=== PATIENT | female | born 1985 | race African-American/Black ===

== ENCOUNTER 2025-01-01 21:29 | Emergency (ER) | payer MEDICAID, SELFPAY ==
--- OUTSIDE RECORDS SUMMARY | 2024-12-08 11:30 | XMS_ITS | Encounter Summary ---
Author Organization [facility] Address [address] [place] [address] Care Team Providers Care Molder Apprentice Name Role Phone Candice Ayala MD Primary Care Provider [phone] Reason for Referral * Procedure/Equipment (Routine) - Incomplete Specialty Diagnoses / Procedures Referred By Contac t Referred To Contact Diagnoses S/P hysterectomy with oophorectomy Procedures DXA Bone Density Spine/[place] [address] [place] [address] Phone: tel: fax: Referral ID Status Reason Start Date Expiration Date V isits Requested Visits Authorized [id number] Incomplete 12/08/2024 03/09/2026 1 1 * Consult/Transfer Care (Routine) - New Request Specialty Diagnoses / Procedures Referred By Contac t Referred To Contact Diagnoses Unable to maintain weight Georgia Rodriges MD [address] [place] [address] Phone: tel: fax: Referral ID Status Reason Start Date Expiration Date V isits Requested Visits Authorized [id number] New Request 12/08/2024 03/09/2026 1 1 Scheduling Instructions Your clinician has recommended an evaluation by our [facility] team. You can quickly schedule your appointment by signing in to your online account at [email or web address] or through the text message you may have received. You can also call [phone] for help scheduling your appointment. Question Answer Appointment Urgency? Non-Urgent Reason for visit? Medication (non-surgical) Comments Pt requests consult, weight up and down by 30#, harder to lose weight. Let me (or pt) know if she cannot be seen in your clinic. Will refer to primary care if needed. * Consult/Transfer Care (Routine) - New Request Specialty Diagnoses / Procedures Referred By Emily camacho Referred To Contact Diagnoses Hair loss Georgia Rodriges MD [address] [email or web address] [address] Phone: tel: fax: Referral ID Status Reason Start Date Expiration Date V isits Requested Visits Authorized [id number] New Request 12/08/2024 03/09/2026 1 1 Scheduling Instructions Your clinician has recommended an appointment with Bernadine Saxena. You can quickly schedule your appointment by signing in to your online account at [email or web address] or through the text message you may have received. You can also make an appointment by calling [phone]. We also suggest you call your health insurance provider about your benefits and coverage for this appointment. Question Answer Appointment Urgency? Non-Urgent Reason for Visit All other Derm conditions Comments Hair loss, diffuse Reason for Visit * Reason Onset Date Comments Video Visit 12/08/2024 Encounter Details Date Type Department Care Team (Late st Contact Info) Description 12/08/2024 11:30 AM CDT [facility] [address] [place], [place] [address] Georgia Rodriges MD [email or web address] [place], [place] [id number] Surgical menopause on hormone replacement therapy (Primary Dx); Hair loss; Unable to maintain weight; Menopausal vasomotor syndrome; S/P hysterectomy with oophorectomy; Encounter for screening for osteoporosis Social History Tobacco Use Types Packs/Day Years Used Date Smoking Tobacco: Never Smokeless Tobacco: Never Alcohol Use Standard Drinks/Week Comments Yes 1 (1 standard drink = 0.6 oz pur e alcohol) social PHQ-2 Answer Date Recorded PHQ-2 Score 4 07/31/2024 Comments No Sex and Gender Information Value Date Recorded Sex Assigned at Not on file Legal Sex Female 5:55 AM CDT Gender Identity Not on file Sexual Orientation Not on file Occupation Industry Job Start Date Job End Date Not on file Not on file Not on file Not on file documented as of this encounter Patient Instructions * Patient Instructions* Georgia Rodriges MD - 12/08/2024 11:30 AM CDT Jordi Cristina-- It was nice to virtually meet you today! As promised, I'm getting back to you on a few things: Bone density testing--I think we should get your baseline, since your ovaries were removed at such a young age. I put the order in, and you can call to schedule at [phone]. 2. We talked about sending you to dermatology for evaluation for the hair loss. I did put that referral in. You can call to schedule an appointment there at [phone]. 3. Regarding her difficulty with weight management, you mentioned you 10 to go up and down by 30 lb. I did put in a referral to the weight management clinic through bariatric, however there is a ???disclaimer?? that says BMI needs to be above 35 to be a candidate to be seen there. I am not sure how true this is, so I will give you the number to call. If they do say you do not ???qualify?? to beseen there, I would then refer you to primary care for further management. The bariatric phone number for an appointment is [phone]. 4. I did send a 30 day refill of your estrogen to the [facility] in [place]. In looking for a transdermal equivalent, I do not find any patches that go up to that equivalent dose. I would like to review this with one of my partners, Dr. Dylan Ordoñez, who is our local menopausal hormone expert. Iwill ask her opinion and advice and get back to you on this. The other medication I mentioned for hot flashes (only) is called Veozah, in case you wish to google it. I am curious, if you have been off your estrogen for 1 month, did your hot flashes worsen without the estrogen? Or are the hot flashes present no matter whether you are on estrogen replacement or not? This is an important question, please call or write back with the answer. It will help us manage your symptoms! Enjoy your time in [place]! Call or write back if you have interval questions or concerns and let me know about whether your hot flashes change with or without estrogen.... Georgia Rodriges MD 6:21 PM 12/08/2024 documented in this encounter Progress Notes * Georgia Rodriges MD - 12/08/2024 11:30 AM CDTAddended by: GEORGIA RODRIGES on: 12/08/2024 07:47 PM Modules accepted: Level of Service * Georgia Rodriges MD - 12/08/2024 11:30 AM CDT Today's visit with Cristina Luque was conducted via telehealth (video) as it is the patient's preference and it is appropriate for the treatment being provided. She is a new patient to me. She is in her private car but pulled over for the visit. I am in my private office. Cristina had pelviscopy, then CRISTIANA, then open BSO in 2010 (age 25) d/t endometriosis. She has been taking estrace 3 mg po daily, without progesterone. Is s/p pelviscopy with cystectomies, then CRISTIANA for pain, then open BSO in 2010 describing normal ovaries with adhesions. Despite lackof progesterone, she has not had sx of endometriosis. Chart review lists hx including cardiac dysrhythmia, migraines. Has had cardiac ablation. Has struggled with possible POTS, has a port in. 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 Normal ovaries with adhesions, endo confirmed on pathology. No family hx of breast cancer. Problems discussed today: --vasomotor symptoms. She has been off her estrogen for a month because she ran out. She says she has had hot flashes since her surgery and that hormone supplementation has ???never helped?? . She recalls trying gabapentin in the past for restless legs and did not think that had any impact on her hot flashes. Hot flashes are only during the day, she finds that she does sleep well. Says her motherhad significant struggles with menopause and hot flashes as well. We discussed Veozah, as another option for trying to reduce hot flashes. She really does not want to introduce any additional oral medications at this time. In the meantime, I reviewed with her that transdermal delivery of estrogen is a bit less risky thanoral, due to liver metabolism and increased coagulation factors. She would be very much interested in a transdermal delivery. --Hair loss. Cristina says her hair has been diffusely thinning ever since her surgery. Says hairline is receiving perhaps a little bit, she does not have any patches of hair loss, but rather it is diffuse. She has long hair, but finds she can place hair binders around her ponytail 3 or 4 times, whereshe used to only be able to do it twice. I would recommend dermatology evaluation as additional workup. --Weight maintenance. Cristina states she can gain up to 30 lb in a short time, that it is very difficult to get the weight back off. She will need to follow strict keto diet to get weight off. Reviewedthat this becomes more difficult as we age. She wonders if there are other dietary recommendations.I have offered her consultation in the weight management clinic for guided approach. Last BMI listed was 25.7 back in July. If the weight management clinic we will not see her, we will then refer toprimary care. Last bone density: She has never had a bone density test Last mammogram 07/31/[address] abd/pelvis 06/11/17 negative. Pap 09/22/13 [facility], negative.--no longer needs pap as no hx severe dysplasia. Reviewed with her. Outpatient Medications Marked as Taking for the 12/08/24 encounter (Telemedicine) with Georgia Rodriges MD Medication Sig Dispense Refill estradiol (ESTRACE) 1 MG tablet Taking with 2 mg tablet for total 3 mg po daily 30 Tablet 1 estradiol 2 MG tablet Taking with 1 mg tablet for total 3 mg daily 30 Tablet 3 Midodrine 10 mg p.o. t.i.d., Valium 2 mg as needed for anxiety, Abilify, EpiPen available. Allergies for Rebel, Cristina Hanson Status Agent Date Noted Reaction Type Active ADHESIVE 01/25/2018 Hives Active BETA ADRENERGIC BLOCKERS 02/05/2018 Contraindication Active DOG EPITHELIUM 01/25/2018 Other, see comments Active HYDROCODONE-ACETAMINOPHEN 03/16/2017 Gastrointestinal OBJECTIVE: Well-developed well-nourished woman in no distress, driving a vehicle. Alert and oriented. Very pleasant. No additional exam is this is a scheduled video visit ASSESSMENT: History of endometriosis Status post hysterectomy with bilateral salpingo-oophorectomy in staged procedures as outlined above, BSO done 06/24/2010. She has been on estrogen replacement with 3 mg Estrace daily. Has not had progesterone as part of this regimen, does not need endometrial protection as she has had a hysterectomy however does have documented endometriosis at the times of surgery. Fortunately, asymptomatic. Ran out of her estrogen prescription a month ago. Is interested in transdermal route --Difficulty with weight maintenance. Says she goes up and down by 30 lb, and it is very difficult to lose weight. She is interested in seeing weight management and bariatric for help with this. --Diffuse hair loss, says hair is is a lot thinner since her hysterectomy. Estrogen is replaced. Dermatology referral. --Menopausal symptoms: Says she has had hot flashes since surgery and that hormone replacement as never helped. Tried gabapentin in the past, does not think it helps. Does sleep well. PLAN: Recommended bone density to be sure we have her baseline, and can follow as needed Reviewed transdermal estrogen replacement provides less of a risk of venous thromboembolic events compared to oral. Risks are already low, but can be made lower by transdermal delivery. She is interested in exploring this. I do not see any patches at the equivalent dose however, so I will review this with a [facility]- certified partner to get her recommendations. In the meantime, she has been off her estrogen for a month and remain symptomatic. I have sent refills for 1 month supply to [place], where she will be vacationing. Referral to Dermatology for additional workup or management of hair loss. Georgia Rodriges MD 6:36 PM 12/08/2024 Total time 55 minutes including 25 minutes on video visit, additional time chart review, documentation, and coordination of care Heart Health: As recommended by the [place] [employer], we use information about your health to estimate your risk for a heart attack or stroke. Your risk in the next 10 years is 0.2%. The information we used to estimate your risk is: Your age 39, sex, blood pressure of 120/71 mm Hg, no use of blood pressure lowering medication, total cholesterol of 168 mg/dl, HDL (good cholesterol) of 72mg/dl, no diagnosis of diabetes, no tobacco or nicotine use. You can improve your heart health by doing the following in order of priority: For information on self-directed lifestyle change for weight management, go to [email or web address] PriorityWizard documented in this encounter Plan of Treatment Upcoming Encounters Date Type Department Care Team (Late st Contact Info) Description 01/05/2025 9:00 AM CDT Appointment [facility] [id number] [facility] [address] [place] [address] Yany Faye MD [address] [facility] [address] [place] [phone] 01/05/2025 10:00 AM CDT Appointment [facility] [address] [address] [address] [place] [address] Yany Faye MD [address] [facility] [address] [place] [phone] 01/05/2025 11:00 AM CDT Appointment [facility] [address] [address] [address] [place] [phone] Yany Faye MD [address] [facility] [address] [place] [phone] 03/03/2025 8:00 AM BIO MEDICAL TECHNICIAN Appointment [facility] [address] [place] [address] 03/05/2025 11:20 AM BIO MEDICAL TECHNICIAN Tele[facility] [address] [place] [address] Lexy Park MD [id number] [place] [address] Scheduled Orders Name Type Priority Associated Diagnoses Orde r Schedule DXA Bone Density Spine/Hip/Forearm Imaging New Routine S/P hysterectomy with oophorectomy Expected: 12/08/2024, Expires: 01/07/2027 Scheduled Referrals Name Type Priority Associated Diagnoses Orde r Schedule Dermatology Consult-Adult/Peds Referral Routine Hair loss Ordered: 12/08/2024 Weight Management and Bariatric Surgery Consult Referral Routine Unable to maintain weight Ordered: 12/08/2024 documented as of this encounter Visit Diagnoses Diagnosis Surgical menopause on hormone replacement therapy- Primary Hair loss Alopecia, unspecified Unable to maintain weight Other symptoms concerning nutrition, metabolism, and development Menopausal vasomotor syndrome S/P hysterectomy with oophorectomy Acquired absence of both cervix and uterus Encounter for screening for osteoporosis Special screening for osteoporosis documented in this encounter Care Teams Molder Apprentice Relationship Specialty [place] [address] [address] [place] [address] PCP - General Family Practice 09/07/16 documented as of this encounter
--- OUTSIDE RECORDS SUMMARY | 2024-12-16 13:30 | XMS_ITS | Encounter Summary ---
Author Organization [employer] [facility] Address [address] [place] [address] Care Team Providers Care Marine Consultant Name Role Phone Candice Ayala MD Primary Care Provider [phone] Reason for Referral * Procedure/Equipment (Routine) - Incomplete Specialty Diagnoses / Procedures Referred By Contac t Referred To Contact Diagnoses Trigeminal autonomic cephalgias Hyperreflexia Paresthesias Procedures MR Thoracic Spine W/WO IV Cont Yany Faye MD [address] [place] [phone] Phone: tel: fax: Referral ID Status Reason Start Date Expiration Date V isits Requested Visits Authorized [id number] Incomplete 12/16/2024 03/17/2026 1 1 * Procedure/Equipment (Routine) - Incomplete Specialty Diagnoses / Procedures Referred By Contac t Referred To Contact Diagnoses Trigeminal autonomic cephalgias Hyperreflexia Paresthesias Procedures MR Cervical Spine W/WO IV Cont Yany Faye MD [address] [address] Phone: tel: fax: Referral ID Status Reason Start Date Expiration Date V isits Requested Visits Authorized [id number] Incomplete 12/16/2024 03/17/2026 1 1 * Procedure/Equipment (Routine) - Incomplete Specialty Diagnoses / Procedures Referred By Emily t Referred To Contact Diagnoses Trigeminal autonomic cephalgias Hyperreflexia Paresthesias Procedures MR Brain W/WO IV Cont Yany Faye MD [address] [address] Phone: tel: fax: Referral ID Status Reason Start Date Expiration Date V isits Requested Visits Authorized [id number] Incomplete 12/16/2024 03/17/2026 1 1 Reason for Visit * Reason Comments CONSULT Encounter Details Date Type Department Care Team (Late st Contact Info) Description 12/16/2024 1:30 PM CDT Office Visit Specialty Center [address] [place] [phone] Yany Faye MD [facility] [address] [address] Trigeminal autonomic cephalgias (Primary Dx); Hyperreflexia; Paresthesias; Postsurgical menopause Social History Tobacco Use Types Packs/Day Years [...] on file documented as of this encounter Last Filed Vital Signs Vital Sign Reading Time Taken Comments Blood Pressure 101/69 12/16/2024 1:32 PM CDT Pulse 69 12/16/2024 1:32 PM CDT Temperature - - Respiratory Rate 14 12/16/2024 1:32 PM CDT Oxygen Saturation - - Inhaled Oxygen Concentration - - Weight 72.1 kg (159 lb) 12/16/2024 1:32 PM CDT Height - - Body Mass Index 26.46 07/31/2024 9:27 AM CDT documented in this encounter Patient Instructions * Patient Instructions* Yany Faye MD - 12/16/2024 1:30 PM CDT Call radiology [phone] and schedule MRI brain and spine studies. For flare up indomethacin 50 mg 1 capsule 3 times a day with food and 1 OTC Prilosec a day during flare up. documented in this encounter Progress Notes * Yany Faye MD - 12/16/2024 1:30 PM CDT REASON FOR VISIT: Headaches. REFERRING PROVIDER: Lexy Park MD HISTORY OF PRESENT ILLNESS: Robert is very pleasant 39-year-old female who comes in for evaluation of chronic headaches. Genie received prior neurological [facility] [facility] and most[facility]ly [facility], was seen here by Dr. Park for spells diagnosed as nonepileptic. As far as headaches describes symptoms that have been going on for about 20 years. The pain starts in the occipital area usually right side but may also have episodes on the left, like lightening bolts going through head to ear, frontal area including eye, attack of pain for seconds to minutes followed by residual sensation of numbness in the affected area, has associated ipsilateral sinus congestion, lacrimation, sensitivity to touch, head movement such as rotation, flexion, but also touch, and environmental triggers such as light and noise will trigger superimposed attacks. Symptoms can last for several hours and flare-up can last 7-9 days, with 1-4 weeks in between flare-ups. She has tried several treatments as summarized further. No recent imaging completed. In addition to headacheshas diagnosis of POTS, mast cell activation syndrome, Tourette's syndrome, narcolepsy. Has port forIV fluids, administers herself weekly. She used to see specialist for mast cell activation syndrome, used to take cromolyn and use Benadryl IV. She gets tingling in her upper extremities, episodic spells that are described as body feels heavy causing her to sit down, remains aware and alert, although speech is altered, episode can last for couple hours. Since childhood until age 6 was doing ballet then age 9 through 17 gymnastics and age 20 to 29 dancing. She had hysterectomy age 23 for severe endometriosis. PRIOR TREATMENTS: Amitriptyline; topiramate; gabapentin; Depakote; carbamazepine; propranolol; Emgality; rizatriptan;Ubrelvy; NSAIDs; narcotics; muscle relaxants. INVESTIGATIONS: MRI brain w/wo 03/20/2012 at [facility]: Normal MR appearance of the imaged extent f the fifth cranial nerves. Normal MR appearance of the remainder of the brain without evidence of intracranial mass, hemorrhage or acute or subacute infarction. Mild right ethmoid air cell mucosal thickening. CTA 11/19/2017: Negative. REVIEW OF SYSTEMS: Pertinent positives are summarized above in the history of present illness. Remainder of complete review of systems is negative. PAST MEDICAL HISTORY: Headaches as detailed above. POTS. Mast cell activation syndrome. Tourette's syndrome. Narcolepsy. Joint pain. Anxiety, depression and panic disorder. Insomnia. SVT status post ablation. Back injury in sport. Total hysterectomy age 23 for severe endometriosis. Knee surgery. MEDICATIONS: Abilify 2 mg a day, diazepam 2 mg prn, estradiol 0.15 mg/24hr weekly patch, lactate ringers infusion every 3 weeks. Allergies as of 12/16/2024 - Reviewed 11/05/2024 Allergen Reaction Noted Adhesive Hives 01/25/2018 Beta adrenergic blockers 02/05/2018 Dog epithelium Other, see comments 01/25/2018 Hydrocodone-acetaminophen Gastrointestinal 03/16/2017 FAMILY HISTORY: Unremarkable. SOCIAL HISTORY: Single, no children. 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 Denies tobacco, alcohol use. BP 101/69 (BP Location: Left Arm, BP Cuff Size: Regular) Pulse 69 Resp 14 Wt 159 lb (72.1 kg) BMI 26.46 kg/m?? GENERAL: Alert, in no acute distress. Appears well for stated age. Maintains good eye contact. NEUROLOGICAL EXAM: Alert and oriented x3. Speech and conversational language are normal. Recent andremote memory intact. Normal attention span and concentration. Fund of knowledge is appropriate. Cranial nerve exam 2 through 12 is normal. Motor exam reveals normal muscle tone and muscle strength in major muscle groups. Deep tendon reflexes are symmetric, increased throughout, positive Trae, plantar responses withdrawal. No dysmetria, no tremor. Sensory exam is normal to touch and vibration. Gait is normal including toe, heel, and tandem. Romberg is negative. ASSESSMENT: Autonomic cephalalgia. Hyperreflexia. Paresthesias. Spells. Mast cell activation syndrome POTS. PLAN: Given constellation of symptoms, cephalalgia with autonomic symptoms but also history of POTS, spells, mast cell activation syndrome, pre-existing history of repetitive motion injuries related to gymnastics and dance prior to symptoms onset, abnormal exam hyperreflexia, I wonder about proximal cervical spine instability. Will get MRI brain, cervical through thoracic spine with and without contrast. Of interest would be cervical spine with flexion-extension but this cannot be done at our imagingcenter but will start with routine studies first. For symptomatic management indomethacin 50 mg 3 times a day with food and Prilosec on the day of symptoms flare-up. Follow-up in 2 to 3 months or sooner based on the outcome of the above. Total time 60 minutes, spent reviewing chart, films, test results, interviewing patient, examination, and care coordination. Greater than 50% in direct face to face counseling and coordination of care. documented in this encounter Plan of Treatment Upcoming Encounters Date Type Department Care Team (Late st Contact Info) Description 01/05/2025 9:00 AM CDT Appointment [facility] [place] [address] [place] [address] [place] [address] Yany Faye MD 0782 [facility] [address] [place] [phone] 01/05/2025 10:00 AM CDT Appointment [facility] [place] [address] [place] [address] [place] [phone] Yany Faye MD 3931 [facility] [address] [place] [phone] 01/05/2025 11:00 AM CDT Appointment [facility] [place] [address] [place] [place] [address] [place] [phone] Yany Faye MD [address] [phone] 03/03/2025 8:00 AM COMMERCIAL LOAN REVIEWER Appointment [facility] [address] [place], [place] [address] 03/05/2025 11:20 AM COMMERCIAL LOAN REVIEWER [facility] 3931 Neurology 3931 [place] [address] Lexy Park MD [address] [address] Scheduled Orders Name Type Priority Associated Diagnoses Orde r Schedule MR Brain W/WO IV Cont Imaging New Routine Trigeminal autonomic cephalgias Hyperreflexia Paresthesias Expected: 12/16/2024 (Approximate), Expires: 12/16/2025 MR Cervical Spine W/WO IV Cont Imaging New Routine Trigeminal autonomic cephalgias Hyperreflexia Paresthesias Expected: 12/16/2024 (Approximate), Expires: 12/16/2025 MR Thoracic Spine W/WO IV Cont Imaging New Routine Trigeminal autonomic cephalgias Hyperreflexia Paresthesias Expected: 12/16/2024 (Approximate), Expires: 12/16/2025 documented as of this encounter Visit Diagnoses Diagnosis Trigeminal autonomic cephalgias- Primary Other trigeminal autonomic cephalgias Hyperreflexia Abnormal reflex Paresthesias Disturbance of skin sensation Postsurgical menopause Symptomatic states associated with artificial menopause documented in this encounter Care Teams Marine Consultant Relationship Specialty [place] [address] [place] [address] PCP - General Family Practice 09/07/16 documented as of this encounter
--- OUTSIDE RECORDS SUMMARY | 2025-01-01 21:31 | XMS_ITS | Encounter Summary ---
Author Organization [employer] Address [address] [place] [address] Care Team Providers Care Grocery Store Clerk Name Role Phone Maida Ayala MD Primary Care Provider [phone] Reason for Visit * Reason Onset Date Comments Refill 11/17/2024 aluminum chlorid e (DRYSOL) 20 % external solution Encounter Details Date Type Department Care Team (Late st Contact Info) Description 11/17/2024 Refill [facility] Medicine [address] [place] [address] [place] [address] [place], [place] [address] [place] [id number] Refill (aluminum chloride (DRYSOL) 20 % external solution) Social History Tobacco Use Types Packs/Day Years [...] on file documented as of this encounter Nursing Notes * Webservice, [facility] - 11/17/2024 10:28 AM CDT aluminum chloride (DRYSOL) 20 % external solution Medication started: 07/31/2024 Last ordered by MAIDA AYALA: 11/08/2024 (9 days ago) QTY: 35, Refills: 10, Sig: apply topically every evening. apply sparingly to skin with excessive sweating for 1-5 nights to get appropriate response (unchanged) -> A duplicate request was processed on 11/17/2024. -> Medication cannot be delegated. Last qualifying visit: 07/31/2024 (with MAIDA AYALA) Next scheduled visit: None [facility] Embedded Refills, Reference: [id number], 11/17/2024 10:28:27 AM MEDARDOTKatheryn Refill Centralized Services - Primary Care [[id number]] ([id number]) * Jocelyne Jimenez - 11/17/2024 10:20 AM CDT Received fax from pharmacy stating theres a back order with no eta on when they will have the medication. And if we can send it to another pharmacy. documented in this encounter Plan of Treatment Upcoming Encounters Date Type Department Care Team (Late st Contact Info) Description 01/05/2025 9:00 AM CDT Appointment [facility] [place] [address] [place] [address] [place] [address] Yany Faye MD [address] [phone] 01/05/2025 10:00 AM CDT Appointment [facility] [place] [address] [place] [address] [place] [address] Yany Faye MD [address] [phone] 01/05/2025 11:00 AM CDT Appointment [facility] [place] [address] [address] [address] [place] [address] Yany Faye MD [address] [phone] 03/03/2025 8:00 AM NURSING DEPARTMENT CHAIRPERSON Appointment [facility] [address] [place] [address] 03/05/2025 11:20 AM NURSING DEPARTMENT CHAIRPERSON [facility] 3931 Neurology [facility] [place] [address] Lexy Park MD [address] [address] documented as of this encounter Visit Diagnoses Diagnosis Excessive sweating Generalized hyperhidrosis documented in this encounter Care Teams Grocery Store Clerk Relationship Specialty [place] [address] [place] [address] PCP - General Family Practice 09/07/16 documented as of this encounter
--- OUTSIDE RECORDS SUMMARY | 2025-01-01 21:31 | XMS_ITS | Encounter Summary ---
Author Organization [employer] Address [address] [place] [address] Care Team Providers Care Burr Picker Name Role Phone Candice Ayala MD Primary Care Provider [phone] Reason for Visit * Reason Comments Medication Problems Encounter Details Date Type Department Care Team (Late st Contact Info) Description 11/17/2024 Telephone [facility] 3800 Psychiatry 3800 [facility] [place] [address] Amy Levy APRN, PSYCH NURSE [address] [place], [place] [id number] Medication Problems Social History Tobacco Use Types Packs/Day Years [...] as of this encounter Nursing Notes * Everett Rivas RN - 11/19/2024 3:27 PM CDT RN spoke with pt. Informed her that CarmineRoseanne GRACIE Levy CNP prescribed Abilify 2 mg (4 mg daily) and Valium 2 mg at HS PRN; she can fern picker Abilify today but she needs to wait until 11/21/24 to fern picker Valium. She verbalized understanding. Closing encounter. * Amy Levy APRN, CNP - 11/19/2024 12:29 PM CDT Thank you for the message. I signed and sent the prescription. Thank you. * Everett Rivas RN - 11/18/2024 3:15 PM CDT Routing to Rickie Levy APRN, CNP - Valium 2 mg is signed for 15 days (15 tabs) instead of 10 days. RNd/c 15 day script and pended 10 day script to review/approve. * Everett Rivas RN - 11/18/2024 3:12 PM CDT Noted. RN discontinued Xanax 0.5 mg & Abilify 2 mg daily. * Amy Levy APRN, CNP - 11/18/2024 2:53 PM CDT Thank you for re-setting the date. Yes please DC Xanax on 11/08/2024 and Abilify 2 mg day. Scripts sent. * Everett Rivas RN - 11/18/2024 12:19 PM CDT Routing to Rickie Levy APRN, CNP - If okay, pended Valium 2 mg x 10 days (2 mg HS PRN) & Abilify 2 mg (4 mg daily) to review/approve. Date adjusted to 11/21/24 for Valium 2 mg d/t pt picked up Xanax 0.5 mg on 11/08/24. Do we need to d/c Xanax 0.5 mg as Valium starts? *11/05/24 visit note not signed. RN to discontinue script for Abilify 2 mg daily after Rickie Levy approves Abilify 4 mg daily (take 2 tabs of 2 mg). * Amy Levy APRN, CNP - 11/18/2024 12:00 PM CDT Thank you for the clarification. She can start Valium 2 mg at bedtime prn x 10 days. Do not take cannabis with Valium due to the risk of sedation. Increase Abilify to 4 mg po daily. * Everett Rivas RN - 11/18/2024 11:41 AM CDT Routing to Rickie Levy APRN, CNP - Pt is not reporting on SE for Abilify 2 mg. Also pt is requesting Valium instead of Xanax. Please see RN's 11/17/24 note below and advise. * Amy Levy APRN, CNP - 11/18/2024 11:16 AM CDT Thank you for the message. Cristina can increase the Abilify dose to 4 mg daily, if she is not having side effects. Thank you. * Everett Rivas RN - 11/17/2024 11:13 AM CDT Ramiro to Rickie Levy APRN, CNP - RN spoke with pt. She states Abilify 2 mg is too low as she does not feel anything different and people around her has noticed difference. She requests dose increase for Abilify. She also requests Valium because Xanax 0.5 mg has not been effective. She reports she had Valium during her hospitalization in the past and it worked well. She has just started both medications in mid October. Please advise (11/05/24 visit note not signed). RN informed pt that Valium is also controlled drug and it is easy to get addicted. She verbalized understanding. * Everett Rivas RN - 11/17/2024 11:02 AM CDT RN left VM for pt to call back. Need to clarify if pt is reporting both Xanax and Abilify are not working or one or the other. 11/05/24 visit not NOT signed. * Bola Biswas - 11/17/2024 10:19 AM CDT Medication Change/Question/Concern What is your question or concern? Pt calling in stating that she was told to call back if these medications were not working for her, and they are not. Would like to move on the next steps. Name of medication(s): ALPRAZolam (XANAX) 0.5 MG tablet ARIPiprazole (ABILIFY) 2 MG tablet Is it okay to leave a detailed message on your voicemail? Yes We'd like to make sure we have an updated pharmacy on file. Yes; [id number] [place] [address] [address] [phone] Is there anything else I can help you with today? no documented in this encounter Plan of Treatment Upcoming Encounters Date Type Department Care Team (Late st Contact Info) Description 01/05/2025 9:00 AM CDT Appointment [facility] [place] [address] [place] [address] [place] [phone] [place] [address] [place] [phone] 01/05/2025 10:00 AM CDT Appointment [facility] [place] [address] [place] [address] [place] [phone] Yany Faye MD [address] [phone] 01/05/2025 11:00 AM CDT Appointment [facility] [place] [address] [place] [address] [place] [phone] Yany Faye MD [facility] [address] [phone] 03/03/2025 8:00 AM HVAC PROJECT ENGINEER Appointment [facility] [address] [place] [address] 03/05/2025 11:20 AM HVAC PROJECT ENGINEER [facility] 393 Neurology 3931 [place] [address] Lexy Park MD [address] [phone] documented as of this encounter Visit Diagnoses Not on filedocumented in this encounter Care Teams Burr Picker Relationship Specialty [place] [address] [place] [address] PCP - General Family Practice 09/07/16 documented as of this encounter
--- OUTSIDE RECORDS SUMMARY | 2025-01-01 21:31 | XMS_ITS | Encounter Summary ---
Author Organization [employer] Address [address] [place] [address] Care Team Providers Care Gasoline Plant Operator Name Role Phone Candice Ayala MD Primary Care Provider [phone] Salomon Sousa MD Unavailable [phone] Abhilash Christian MD Unavailable [phone] Marina Braga RN Unavailable Unavailable BendSalomon bernal MD Unavailable [phone] Amy Padron ELECTRICIAN ELEVATOR MAINTENANCE SALESPERSON [employer] Unavailable + Alana Rodriguez ELECTRICIAN ELEVATOR MAINTENANCE SALESPERSON [employer] Unavailable [phone] Salomon Sousa MD Unavailable [phone] Encounter Details Date Type Department Care Team (Late st Contact Info) Description 04/09/2023 [facility] Medical Advice [facility] [address] [address] Salomon Sousa MD [address] [place] [address] Social History Tobacco Use Types Packs/Day Years Used Date Smoking Tobacco: Never Smokeless Tobacco: Never Alcohol Use Standard Drinks/Week Comments Yes 3.3 (1 standard drink = 0.6 oz p ure alcohol) occas PHQ-2 Answer Date Recorded PHQ-2 Score 0 06/15/2022 Adolescent Education Answer Date Record ed Getting School Help Needed Not on file 01/28 Comments No Sex and Gender Information Value Date Recorded Sex Assigned at Not on file Legal Sex Female 4:13 AM DRYING TUMBLER OPERATOR Gender Identity Not on file Sexual Orientation Not on file 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 Not on file documented as of this encounter Plan of Treatment Upcoming Encounters Date Type Department Care Team (Late st Contact Info) Description 05/28/2025 12:00 PM DRYING TUMBLER OPERATOR Virtual Visit [facility] [address] [phone] Salomon Sousa MD [address] [place] [phone] documented as of this encounter Visit Diagnoses Not on filedocumented in this encounter Care Teams Gasoline Plant Operator Relationship Specialty Start Date End Date Candice Ayala MD PCP - General Family Practice 08/30/17 Salomon Sousa MD Clinical Cardiac Electrophysiology 10/16/18 Abhilash Christian MD [address] [phone] Cardiology 10/16/18 Marina Braga, RN Specialty Special Services Agent Clinical Cardiac Electrophysiology 03/10/19 Salomon Sousa MD Assigned Heart and Vascular Provider 02/13/20 Amy Padron APRN SALESPERSON [employer] [address] [place], [place] [phone] Nurse Practitioner Cardiovascular Disease 04/09/23 Alana Rodriguez APRN SALESPERSON [employer] [address] [place] [address] Assigned Surgical Provider 05/05/23 11/11/24 Salomon Sousa MD 9 [place], [place] [address] Home Infusion Following Provider Cardiovascular Disease 02/11/24 documented as of this encounter
--- OUTSIDE RECORDS SUMMARY | 2025-01-01 21:31 | XMS_ITS | Encounter Summary ---
Author Organization [employer] Address [address] [place] [address] Care Team Providers Care Tank Calibrator Name Role Phone Candice Ayala MD Primary Care Provider [phone] Salomon Sousa MD Unavailable [phone] Abhilash Christian MD Unavailable Marina Braga RN Unavailable Unavailable BendSalomon bernal MD Unavailable [phone] Amy Padron AERIAL GUNNER SUPERINTENDENT INSOLE TAPER Unavailable + Alana Rodriguez AERIAL GUNNER SUPERINTENDENT INSOLE TAPER Unavailable [phone] Salomon Sousa MD Unavailable [phone] Encounter Details Date Type Department Care Team (Late st Contact Info) Description 09/21/2022 [facility] Medical Advice [facility] [address] [address] Salomon Sousa MD [address] [place] [address] Autonomic dysfunction (Primary Dx) Social History Tobacco Use Types Packs/Day Years Used Date Smoking Tobacco: Never Smokeless Tobacco: Never Alcohol Use Standard Drinks/Week Comments Yes 3.3 (1 standard drink = 0.6 oz p ure alcohol) occas PHQ-2 Answer Date Recorded PHQ-2 Score 0 06/15/2022 Comments No Sex and Gender Information Value Date Recorded Sex Assigned at Not on file Legal Sex Female 4:13 AM DIGITAL MARKETING PROGRAM MANAGER Gender Identity Not on file Sexual Orientation Not on file 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 Not on file documented as of this encounter Plan of Treatment Upcoming Encounters Date Type Department Care Team (Late st Contact Info) Description 05/28/2025 12:00 PM DIGITAL MARKETING PROGRAM MANAGER Virtual Visit [facility] [address] [phone] Salomon Sousa MD [address] [place] [phone] documented as of this encounter Visit Diagnoses Diagnosis Autonomic dysfunction- Primary Unspecified disorder of autonomic nervous system documented in this encounter Care Teams Tank Calibrator Relationship Specialty Start Date End Date Candice Ayala MD PCP - General Family Practice 08/30/17 Salomon Sousa MD Clinical Cardiac Electrophysiology 10/16/18 [place] [address] [place] [phone] Cardiology 10/16/18 Marina Braga, RN Specialty Color Specialist Clinical Cardiac Electrophysiology 03/10/19 Salomon Sousa MD Assigned Heart and Vascular Provider 02/13/20 Amy Padron APRN INSOLE TAPER [address] [place] [phone] Nurse Practitioner Cardiovascular Disease 04/09/23 Alana Rodriguez APRN INSOLE TAPER [address] [place] [phone] Assigned Surgical Provider 05/05/23 11/11/24 Salomon Sousa MD [address] [place] [address] Home Infusion Following Provider Cardiovascular Disease 02/11/24 documented as of this encounter
--- OUTSIDE RECORDS SUMMARY | 2025-01-01 21:32 | XMS_ITS | Clinical Summary ---
Author Organization [facility] Address [address] [place] [address] Care Team Providers Care Science Faculty Member Name Role Phone Katarzyna Gutierrez Unavailable Allergies No known active allergies Medications estradiol (ESTRACE) 1 mg tablet Take 1 tablet by mouth once daily. 0 09/22/2013 Active estradiol (ESTRACE) 2 mg tabletIndication s:Surgical menopause Take 1 tablet by mouth once daily. APPT NEEDED 90 tablet 0 12/01/2014 Active Active Problems Problem Noted Date Diagnosed Date Endometriosis, site unspecified 06/24/2010 Endometriosis of ovary 07/26/2009 Lichen sclerosus et atrophicus 05/14/2009 Overview (05/14/2009): On abdomen. Noted on biopsy 05/06/09. Followed by derm. Mood disorder 04/26/2009 Overview (04/26/2009): Followed by [facility] psychiatry; they are also concerned for possible personality disorder, ocd. History of 3 psychiatric hospitalizations at [facility]. Hepatitis C, chronic 04/14/2009 Overview (04/26/2009): [place] [facility] records reviewed. Last visit there 03/18/08. Hepatitis C genotype 1a, last viral load 61,080 Normal abdominal ultrasound 12/29. Liver biopsy was performed by Dr. David Lobato and per [place] [facility] records showed grade 1-2 inflammation and stage 0 of 4 fibrosis. Anemia and psychiatric issues at present were felt to outweigh benefits of treatment of HCV. They wanted to see her again in follow up annually. Anemia, unspecified 04/14/2009 Overview (06/28/2009): Normal hgb electrophoresis, peripheral smear most consistent with resolving iron deficiency anemia and possible anemia of chronic disease from hep C. Encounters Date Type Department Care Team Description 12/29/2024 Patient Outreach [facility] [address] [place] [address] Matt August Simone [facility] ([place] inactive outreach) 10/20/2024 Patient Outreach [facility] [address] [place] [address] Matt August Simone [facility] (Administrative Activity ) 10/10/2024 Patient Outreach [facility] [address] [place] [address] Matt August Simone [facility] (Annual HRA Scheduling Outreach) from Last 3 Months Family History Medical History Relation Name Comments Other Father Hepatitis C Other Mother Hepatitis C Relation Name Status Comments Father Mother Social History Tobacco Use Types Packs/Day Years Used Date Smoking Tobacco: Never Smokeless Tobacco: Never Alcohol Use Standard Drinks/Week Comments Yes 0 (1 standard drink = 0.6 oz pur e alcohol) binge alcoholic Comments No Sex and Gender Information Value Date Recorded Sex Assigned at Not on file Legal Sex Female 6:17 AM FORESTRY FOREMAN Gender Identity Not on file Sexual Orientation Not on file Occupation Industry Job Start Date Job End Date Student Not on file Not on file Not on file Obstetrics History Para Term AB IAB SAB Ectopic Multiple Livin g Live Births 0 0 0 0 0 0 0 0 0 0 Last Filed Vital Signs Vital Sign Reading Time Taken Comments Blood Pressure 120/63 08/31/2016 5:28 PM CDT Pulse 70 08/31/2016 5:28 PM CDT Temperature 36.9 C (98.4 F) 08/31/2016 2:10 PM CDT Respiratory Rate 16 08/31/2016 2:10 PM CDT Oxygen Saturation 98% 08/31/2016 2:10 PM CDT Inhaled Oxygen Concentration - - Weight 58.3 kg (128 lb 8 oz) 08/31/2016 2:10 PM CDT Height 167.6 cm (5' 6) 08/31/2016 2:10 PM CDT Body Mass Index 20.74 08/31/2016 2:10 PM CDT Plan of Treatment Health Maintenance Due Date Last Done Comments Depression screening for age 12+ 1996 HIV for age 15-65 1999 Hepatitis C screening for age 18-79 2002 Hepatitis B series for 19+ (1 of 3 - 19+ 3-dose series) 2003 HPV series for age 9-45 (1 - 3-dose SCDM series) 2011 Tetanus booster 04/23/2015 04/23/2005 (Comp leted outside of [facility]) Pap test for age 21-65 09/22/2016 4, 03/31/2009 (Completed outside of [facility]) BMI (ht and wt on same day) for age 18+ 08/31/2017 08/31/2016 COVID-19 vaccine series (2023- season) 2024 Influenza Vaccine (#1) 2024 RSV vaccine for adults or (1 - 1-dose 75+ series) 2059 Pneumococcal series for age 6-49 Aged Out No longer eligible based on patient's age to complete this topic Procedures Procedure Name Priority Date/Time Associated Diagnosis Comments EXTRACTOR PULLER THIN PREP PAP SCREEN IMAGED Routine 09/22/2013 4:57 PM CDT Screening for malignant neoplasm of the cervix from Last 3 Months or Most Recently Relevant to Health Maintenance Results * EXTRACTOR PULLER THIN PREP PAP SCREEN IMAGED (09/22/2013 4:57 PM CDT) CYTOLOGY CYTOPATHOLOGY REPORT [facility] Status: Final Status [id number] CLINICAL INFORMATION Last Date of LMP :Hysterectomy Last Pap Date :Unknown Last Pap Result :First Pap/Unknown ABN [place]/Bx Past 5 YRS :None Hormone Usage :None Menstrual Status :Hyst-cervix absent [place]/Bx done today :No Additional Information :None given HPV Request :HPV if ASCUS SPECIMEN SOURCE :Cervical/vaginal ThinPrep Vial, screening SPECIMEN ADEQUACY :Satisfactory for evaluation INTERPRETATION/RES ULT Negative for intraepithelial lesion or malignancy (NIL) Organisms Shift in adarsh suggestive of bacterial vaginosis Cytology 1st Screener :richie Signed by :richie This specimen was screened by the FDA approved ThinPrep Imaging System and manually reviewed. NOTE: The Pap test is a screening technique, not a diagnostic procedure. It is used primarily to screen for squamous cancers and precursor lesions. Published studies have shown that it is subject to both false negative and false positive results. The pap test should not be used as the sole means to diagnose or exclude pre-malignant and malignant lesions. COLLECTED:09/22/13 ACCESSIONED: 09/23/13 SIGNED: 09/26/13 [facility] PAP [place] CODE NIL [facility] Tissue specimen (specimen) (Cervical/Vagina l) 09/22/2013 4:57 PM CDT 09/22/2013 4:54 PM CDT us Lori Colorado NP PATHOLOGY/CYTOLOGY Final Result [facility] INTERNAL ZIP [id number] [place] [phone] from Last 3 Months or Most Recently Relevant to Health Maintenance Insurance LOCATED WITHIN [facility] Advance Directives * Full Code (Latest Code Status on File) Date Activated Date Inactivated Comments 06/24/2010 5:12 AM 06/27/2010 6:08 PM * Full Code Date Activated Date Inactivated Comments 07/26/2009 9:46 AM 07/29/2009 2:43 PM * Full Code Date Activated Date Inactivated Comments 07/26/2009 5:57 AM 07/26/2009 9:46 AM * Full Code Date Activated Date Inactivated Comments 06/28/2009 7:17 AM 06/28/2009 4:16 PM * Full Code Date Activated Date Inactivated Comments 03/11/2008 6:32 AM 03/11/2008 1:29 PM Care Teams Science Faculty Member Relationship Specialty Start Date End Date Matt August Simone [address] [place] [address] [facility] Care Guide 12/18/22
--- OUTSIDE RECORDS SUMMARY | 2025-01-01 21:32 | XMS_ITS ---
Author Organization [facility] Address [address] [place] [address] Care Team Providers Care Director Of Safety And Security Name Role Phone Candice Ayala MD Primary Care Provider [phone] Salomon Sousa MD Unavailable [phone] Abhilash Christian MD Unavailable [phone] Marina Braga RN Unavailable Unavailable Salomon Sousa MD Unavailable [phone] Amy Padron APRN REJECT OPENER AND FILLER Unavailable + Salomon Sousa MD Unavailable [phone] Catheter Care Status:Enrolled (Active) Start date:12/27/2023 Enrollment date:12/27/2023 Related program episode:Home Infusion (Active) Continued Care and Services Coordination
--- OUTSIDE RECORDS SUMMARY | 2025-01-01 21:32 | XMS_ITS | Encounter Summary ---
Author Organization [facility] Address [address] [place] [address] Care Team Providers Care Grade Setter Name Role Phone Candice Ayala MD Primary Care Provider + [phone] Salomon Sousa MD Unavailable [phone] Abhilash Christian MD Unavailable [phone] Marina Braga RN Unavailable Unavailable Salomon Sousa MD Unavailable [phone] Amy Padron SUBSYSTEMS ENGINEER AGRICULTURAL ENGINEERING TECHNICIANS Unavailable + Alana Rodriguez SUBSYSTEMS ENGINEER AGRICULTURAL ENGINEERING TECHNICIANS Unavailable [phone] Salomon Sousa MD Unavailable [phone] Encounter Details Date Type Department Care Team (Late st Contact Info) Description 09/29/2021 [facility] [address] [address] [facility] Social History Tobacco Use Types Packs/Day Years Used Date Smoking Tobacco: Never Smokeless Tobacco: Never Alcohol Use Standard Drinks/Week Comments Yes 3.3 (1 standard drink = 0.6 oz p ure alcohol) occas Comments No Sex and Gender Information Value Date Recorded Sex Assigned at Not on file Legal Sex Female 4:13 AM LUNCHROOM SUPERVISOR Gender Identity Not on file Sexual Orientation Not on file 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 Not on file documented as of this encounter Plan of Treatment Upcoming Encounters Date Type Department Care Team (Late st Contact Info) Description 05/28/2025 12:00 PM LUNCHROOM SUPERVISOR Virtual Visit [facility] [address] [phone] Salomon Sousa MD [address] [place] [address] [phone] documented as of this encounter Visit Diagnoses Not on filedocumented in this encounter Care Teams Grade Setter Relationship Specialty Start Date End Date Candice Ayala MD PCP - General Family Practice 08/30/17 Salomon Sousa MD Clinical Cardiac Electrophysiology 10/16/18 Abhilash Christian MD [address] [id number] Cardiology 10/16/18 Marina Braga, RN Specialty Bedspring Assembler Clinical Cardiac Electrophysiology 03/10/19 Salomon Sousa MD Assigned Heart and Vascular Provider 02/13/20 Amy Padron APRN AGRICULTURAL ENGINEERING TECHNICIANS [address] [place] [address] 260274 Nurse Practitioner Cardiovascular Disease 04/09/23 Alana Rodriguez APRN AGRICULTURAL ENGINEERING TECHNICIANS [address] [place] [address] Assigned Surgical Provider 05/05/23 11/11/24 Salomon Sousa MD [address] [place] [address] [id number] Home Infusion Following Provider Cardiovascular Disease 02/11/24 documented as of this encounter
--- OUTSIDE RECORDS SUMMARY | 2025-01-01 21:32 | XMS_ITS | Encounter Summary ---
Author Organization [facility] Address [address] [place] [address] Care Team Providers Care Interpreter Deaf Name Role Phone Candice Ayala MD Primary Care Provider [phone] Reason for Visit * Reason Comments Refill Encounter Details Date Type Department Care Team (Late st Contact Info) Description 12/03/2024 Telephone [facility] [address] [address] Claudia Cochran APRN, FAN MAIL CLERK [address] [address] Refill Social History Tobacco Use Types Packs/Day Years [...] as of this encounter Nursing Notes * Leana Rollins RN - 12/03/2024 10:55 AM CDT Pt status/post TAHBSO - has been on estrogen therapy/ 3 mg since (approx 15 years) Pt is calling for refill today, med has . Pt has not been seen in clinic since 02/24/22. Pt agrees to telemedicine visit for med review Future Appointments Date Time Provider Department Center 12/04/2024 1:30 PM Marilee Nieto APRN, CNM [facility] documented in this encounter Plan of Treatment Upcoming Encounters Date Type Department Care Team (Late st Contact Info) Description 01/05/2025 9:00 AM CDT Appointment [facility] [address] [place] [address] [place] [phone] [place] [address] [place] [address] [phone] 01/05/2025 10:00 AM CDT Appointment [facility] [address] [place] [address] [place] [phone] [place] [address] [place] [phone] 01/05/2025 11:00 AM CDT Appointment [facility] [place] [address] [address] [place] [address] [place] [phone] [place] [address] [place] [phone] 03/03/2025 8:00 AM COMMUNITY MENTAL HEALTH WORKER Appointment [facility] [address] [place] [address] 03/05/2025 11:20 AM COMMUNITY MENTAL HEALTH WORKER [facility] [address] [place] [address] Lexy Park MD 3931 [facility] [address] [place], [place] 654806 documented as of this encounter Visit Diagnoses Not on filedocumented in this encounter Care Teams Interpreter Deaf Relationship Specialty [place] [address] [place] [address] PCP - General Family Practice 09/07/16 documented as of this encounter
--- OUTSIDE RECORDS SUMMARY | 2025-01-01 21:32 | XMS_ITS | Encounter Summary ---
Author Organization [facility] Address [address] [place] [address] Care Team Providers Care Business Solutions Consultant Name Role Phone Candice Ayala MD Primary Care Provider + [phone] Salomon Sousa MD Unavailable [phone] Abhilash Christian MD Unavailable [phone] Marina Braga RN Unavailable Unavailable BendSalomon bernal MD Unavailable [phone] Amy Padron APRN CLOTHING SUPERVISOR Unavailable + Alana Rodriguez ENSEMBLE MEMBER CLOTHING SUPERVISOR Unavailable [phone] Salomon Sousa MD Unavailable [phone] Encounter Details Date Type Department Care Team (Late st Contact Info) Description 10/02/2024 Home Infusion [facility] [address] [place] [address] Carlota Buenrostro [facility] [address] [place] [address] Social History Tobacco Use Types Packs/Day Years Used Date Smoking Tobacco: Never Passive Smoke Exposure: Never Smokeless Tobacco: Never Passive Exposure Comments:pe r pt Alcohol Use Standard Drinks/Week Comments Yes 3.3 (1 standard drink = 0.6 oz p ure alcohol) occas PHQ-2 Answer Date Recorded PHQ-2 Score 2 01/22/2024 Adolescent Education Answer Date Record ed Getting School Help Needed Not on file 01/28 Comments No Sex and Gender Information Value Date Recorded Sex Assigned at Not on file Legal Sex Female 4:13 AM HAND HARDENER Gender Identity Not on file Sexual Orientation Not on file 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 file Not on file documented as of this encounter Plan of Treatment Upcoming Encounters Date Type Department Care Team (Late st Contact Info) Description 05/28/2025 12:00 PM HAND HARDENER Virtual Visit [facility] [address] [phone] Salomon Sousa MD [address] [place] [address] [phone] documented as of this encounter Visit Diagnoses Not on filedocumented in this encounter Additional Health Concerns Assessment Noted Time PHQ-9 Depression Total Score: 7 07/05/19 24 4:37 PM CDT documented as of this encounter Care Teams Business Solutions Consultant Relationship Specialty Start Date End Date Candice Ayala MD PCP - General Family Practice 08/30/17 Salomon Sousa MD Clinical Cardiac Electrophysiology 10/16/18 Abhilash Christian MD [address] [address] Cardiology 10/16/18 Marina Braga, RN Specialty Computer Field Technician Clinical Cardiac Electrophysiology 03/10/19 Salomon Sousa MD Assigned Heart and Vascular Provider 02/13/20 Amy Padron APRN CLOTHING SUPERVISOR [address] [place], [place] 790824 Nurse Practitioner Cardiovascular Disease 04/09/23 Alana Rodriguez APRN CLOTHING SUPERVISOR [address] [place] [address] Assigned Surgical Provider 05/05/23 11/11/24 Salomon Sousa MD [address] [place], [place] 969405 Home Infusion Following Provider Cardiovascular Disease 02/11/24 documented as of this encounter
--- OUTSIDE RECORDS SUMMARY | 2025-01-01 21:32 | XMS_ITS | Encounter Summary ---
Author Organization [facility] Address [address] [place] [address]. [place] [address] Care Team Providers Care Tannery Gummer Name Role Phone Candice Ayala MD Primary Care Provider + [phone] Salomon Sousa MD Unavailable [phone] Abhilash Christian MD Unavailable [phone] Marina Braga RN Unavailable Unavailable Salomon Sousa MD Unavailable [phone] Amy Padron INSOLE LIP TURNER STYLIST APPRENTICE Unavailable + Alana Rodriguez INSOLE LIP TURNER STYLIST APPRENTICE Unavailable [phone] Salomon Sousa MD Unavailable [phone] Encounter Details Date Type Department Care Team (Late st Contact Info) Description 09/08/2019 [facility] Advice Adult Call Center [address] [place] [phone] Isa Cabrera Social History Tobacco Use Types Packs/Day Years Used Date Smoking Tobacco: Never Smokeless Tobacco: Never Alcohol Use Standard Drinks/Week Comments Yes 3.3 (1 standard drink = 0.6 oz p ure alcohol) occas Comments No Sex and Gender Information Value Date Recorded Sex Assigned at Not on file Legal Sex Female 4:13 AM ALEMITE OPERATOR Gender Identity Not on file Sexual Orientation Not on file 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 Not on file documented as of this encounter Plan of Treatment Upcoming Encounters Date Type Department Care Team (Late st Contact Info) Description 05/28/2025 12:00 PM ALEMITE OPERATOR Virtual Visit [facility] Heart [address] [phone] Salomon Sousa MD [address] [place] [address] [phone] documented as of this encounter Visit Diagnoses Not on filedocumented in this encounter Care Teams Tannery Gummer Relationship Specialty Start Date End Date Candice Ayala MD PCP - General Family Practice 08/30/17 Salomon Sousa MD Clinical Cardiac Electrophysiology 10/16/18 Abhilash Christian MD [address] [phone] Cardiology 10/16/18 Marina Braga, RN Specialty Core Machine Operator Clinical Cardiac Electrophysiology 03/10/19 Salomon Sousa MD Assigned Heart and Vascular Provider 02/13/20 Amy Padron APRN STYLIST APPRENTICE [address] [place] [address] [phone] Nurse Practitioner Cardiovascular Disease 04/09/23 Alana Rodriguez APRN STYLIST APPRENTICE [address] [place] [address] [phone] Assigned Surgical Provider 05/05/23 11/11/24 Salomon Sousa MD [address] [place] [address] [phone] Home Infusion Following Provider Cardiovascular Disease 02/11/24 documented as of this encounter
--- OUTSIDE RECORDS SUMMARY | 2025-01-01 21:32 | XMS_ITS | Encounter Summary ---
Author Organization [facility] Address [address] [place] [address] Care Team Providers Care Bill Poster Installer Name Role Phone Candice Ayala MD Primary Care Provider + [phone] Salomon Sousa MD Unavailable [phone] Abhilash Christian MD Unavailable [phone] Marina Braga RN Unavailable Unavailable BendSalomon bernal MD Unavailable [phone] Amy Padron APPRENTICE MACHINIST OUTSIDE STEM DRYER MAINTAINER Unavailable + Alana Rodriguez APPRENTICE MACHINIST OUTSIDE STEM DRYER MAINTAINER Unavailable [phone] Salomon Sousa MD Unavailable [phone] Encounter Details Date Type Department Care Team (Late st Contact Info) Description 04/24/2024 Home Infusion [facility] [address] [place] [phone] Katrin Garner, [facility] Social History Tobacco Use Types Packs/Day Years [...] on file Legal Sex Female 4:13 AM AGGREGATE CONVEYOR OPERATOR Gender Identity Not on file Sexual Orientation Not on file 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 Not on file Not on file documented as of this encounter Plan of Treatment Upcoming Encounters Date Type Department Care Team (Late st Contact Info) Description 05/28/2025 12:00 PM AGGREGATE CONVEYOR OPERATOR Virtual Visit [facility] [address] [phone] Salomon Sousa MD [address] [place] [address] documented as of this encounter Visit Diagnoses Not on filedocumented in this encounter Additional Health Concerns Assessment Noted Time PHQ-9 Depression Total Score: 7 07/05/19 24 4:37 PM CDT documented as of this encounter Care Teams Bill Poster Installer Relationship Specialty Start Date End Date Candice Ayala MD PCP - General Family Practice 08/30/17 Salomon Sousa MD Clinical Cardiac Electrophysiology 10/16/18 Abihlash Christian MD [address] [address] Cardiology 10/16/18 Marina Braga, RN Specialty Cisco Unified Communications Engineer Clinical Cardiac Electrophysiology 03/10/19 Salomon Sousa MD Assigned Heart and Vascular Provider 02/13/20 Amy Padron APRN STEM DRYER MAINTAINER [address] [place] [address] Nurse Practitioner Cardiovascular Disease 04/09/23 Alana Rodriguez APRN STEM DRYER MAINTAINER [address] [place] [address] [place] [phone] Assigned Surgical Provider 05/05/23 11/11/24 Salomon Sousa MD [address] [place], [place] 746275 Home Infusion Following Provider Cardiovascular Disease 02/11/24 documented as of this encounter
--- OUTSIDE RECORDS SUMMARY | 2025-01-01 21:32 | XMS_ITS ---
Author Organization [facility] Address [address] [place] [address] Care Team Providers Care Photographic Laboratory Technician Name Role Phone Candice Ayala MD Primary Care Provider [phone] Salomon Sousa MD Unavailable [phone] Abhilash Christian MD Unavailable [phone] Marina Braga RN Unavailable Unavailable Salomon Sousa MD Unavailable [phone] Amy Padron APRN BRICK SETTER Unavailable + Salomon Sousa MD Unavailable [phone] Home Infusion Status:Enrolled (Active) Start date:12/27/2023 Enrollment date:12/28/2023 Related service episodes:Hydration Therapy (Active), Catheter Care (Active) Continued Care and Services Coordination This section includes services coordinated for Home Infusion. Dialysis/Infusion Name Services Phone [facility] Infusion and IV T herapy [phone] [facility] Name Services Phone [facility] Home Nurs ing [phone]
--- OUTSIDE RECORDS SUMMARY | 2025-01-01 21:32 | XMS_ITS | Clinical Summary ---
Author Organization [facility] Address [address] [place] [address] Care Team Providers Care Radio Time Salesperson Name Role Phone Candice Ayala MD Primary Care Provider + [phone] Salomon Sousa MD Unavailable [phone] Abhilash Christian MD Unavailable [phone] Marina Braga RN Unavailable Unavailable Salomon Sousa MD Unavailable [phone] Amy Padron APRN [facility] Unavailable + Salomon Sousa MD Unavailable [phone] Allergies No known active allergies Medications estradiol (ESTRACE) 2 MG tabletIndicatio ns:Hormone replacement therapy Take 1 tablet (2 mg) by mouth daily 30 tablet 1 09/08/19 17 Active methocarbamol (ROBAXIN) 500 MG tabletIndicatio ns:Generalized pain TAKE 1 TABLET (500 MG) BY MOUTH 4 TIMES DAILY NEEDED FOR MUSCLE SPASMS 30 tablet 03/31/20 20 Active cetirizine (ZYRTEC) 10 MG CHEW Take 10 mg by mouth daily 10/02/19 21 Active cromolyn (GASTROCROM) 100 MG/5ML (HIGH CONC) solution Take 100 mg by mouth 4 times daily 02/18/20 21 Active EMGALITY 120 MG/ML injection Inject 120 mg Subcutaneous every 30 days 02/16/20 21 Active magnesium oxide (MAG-OX) 400 MG tablet Take 400 mg by mouth daily 09/22/19 21 Active ondansetron (ZOFRAN-ODT) 4 MG ODT tab Take 4 mg by mouth as needed 02/19/20 21 Active propranolol (INDERAL) 20 MG tabletIndicatio ns:Autonomic dysfunction,Pal pitations Take 1 tablet (20 mg) by mouth every morning For more refills,schedule an appointment at [phone] 90 tablet 03/27/20 22 Active midodrine (PROAMATINE) 10 MG tabletIndicatio ns:Mast cell disorder,Postpr ocedural hypotension Take 10mg in the morning & 10mg at noon. 180 tablet 3 01/22/20 24 Active Emergency Supply Kit, Central,Indicat ions:Mast cell activation, unspecified Patient use for emergency only. Contents: 3 sodium chloride 0.9% flushes, 1 dressing kit, 1 microclave ext set 14, 4 nitrile gloves (med), 6 alcohol prep pads, 1 bacitracin, 1 syringe (10 cc 20 G 1). Call to reorder. [id number] kit 07/17/19 026 Active lactated ringers in 1,000 mL via CADD pumpIndications :Mast cell activation, unspecified Infuse over 6 hours into the vein twice a week. Remove air via CADD pump. Infuse 1 bag(s) (1000 mL). Each bag to infuse over 6 hours. [place] Volume 1000 mL. Continuous rate: 167 mL/hr. [id number] mL 11/27/2024 11:59 PM CDT 07/17/19 026 Active Port Access KitIndications: Mast cell activation, unspecified For nurse use only. Do not remove items from bag. Use for port access. Do not place syringe on sterile field. [id number] kit 11/27/2024 11:59 PM CDT 07/17/19 026 Active sodium chloride, PF, 0.9% PF flushIndication s:Mast cell activation, unspecified Inject 10 mLs into the vein as needed for line flush. Flush IV before and after med administration as directed and/or at least every 24 hours, or prior to deaccessing for no further use and/or at least every 4 weeks when not accessed. 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 Autonomic dysfunction 12/05/2018 Overview (12/05/2018): Added automatically from request for surgery [id number] SVT (supraventricular tachycardia) 02/06/2017 Syncope 09/07/2016 Atypical chest pain 10/09/2013 Borderline personality disorder 10/09/2013 Depression 10/09/2013 Encounters Date Type Department Care Team Description 12/15/2024 Home Infusion [facility] [address] [place] [phone] Carlota Buenrostro RPH 11/26/2024 Telephone [facility] [address] [place] [phone] Salomon Sousa MD Call Back (Medication question) 10/02/2024 Home Infusion [facility] [address] [place] [phone] Carlota Buenrostro RPH from Last 3 Months Family History Medical History Relation Comments Heart Disease Father irregular heart beat Liver Disease Mother cirrhosis Relation Status Comments Father Alive Mother Alive Social History Tobacco Use Types Packs/Day Years Used Date Smoking Tobacco: Never Passive Smoke Exposure: Never Smokeless Tobacco: Never Tobacco Cessation:Counseling Given: Not Answered Passive Exposure Comments:per pt Alcohol Use Standard Drinks/Week Comments Yes 3.3 (1 standard drink = 0.6 oz p ure alcohol) occas PHQ-2 Answer Date Recorded PHQ-2 Score 2 01/22/2024 Adolescent Education Answer Date Record ed Getting School Help Needed Not on file 01/28 Comments No Sex and Gender Information Value Date Recorded Sex Assigned at Not on file Legal Sex Female 4:13 AM AREA PLANT MANAGER Gender Identity Not on file Sexual Orientation Not on file 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 Not on file Not on file Last Filed Vital Signs Vital Sign Reading Time Taken Comments Blood Pressure 107/72 07/12/2022 3:30 PM CDT Pulse 146 01/22/2024 11:03 AM CDT toda y per pt Temperature 35.6 C (96 F) 07/12/2022 12:55 PM CDT Respiratory Rate 18 07/12/2022 3:30 PM CDT Oxygen Saturation 100% 07/12/2022 3:10 PM CDT Inhaled Oxygen Concentration - - Weight 63.5 kg (140 lb) 07/05/2023 4:34 PM CDT Height 167.6 cm (5' 6) 01/22/2024 11:03 AM CDT Body Mass Index 22.6 07/05/2023 4:34 PM CDT Plan of Treatment Upcoming Encounters Date Type Department Care Team (Late st Contact Info) Description 05/28/2025 12:00 PM AREA PLANT MANAGER Virtual Visit [facility] Heart [address] [phone] Salomon Sousa MD [address] [place] [address] Health Maintenance Due Date Last Done Comments ADVANCE CARE PLANNING 1984 ANNUAL REVIEW OF HM ORDERS 1984 MAMMO SCREENING 1984 HIV SCREENING 1999 HEPATITIS C SCREENING 2002 HEPATITIS B VACCINE (1 of 3 - 19+ 3-dose series) 2003 DTAP/TDAP/TD VACCINE (8 - Tdap) 04/02/2016 04/02/2006, 04/23/2005, 01/23/1997, Additional history exists PAP 09/22/2016 09/22/2013 YEARLY PREVENTIVE VISIT 02/24/2023 02/25/20 22, 06/30/2019, 01/25/2018 DIABETES SCREENING 03/06/2024 03/06/2021, 0 07/09/2019, 04/12/2018, Additional history exists PHQ-2 (once per calendar year) 2024 01/22/2024, 07/05/2023, 07/05/2023, Additional history exists LIPID 2024 COVID-19 VACCINE ( season) 2024 INFLUENZA VACCINE (#1) 2024 ZOSTER VACCINE (1 of 2) 2034 HPV VACCINE (No Doses Required) Completed MENINGITIS VACCINE Aged Out No longer eligible based on patient's age to complete this topic PNEUMOCOCCAL VACCINE: PEDIATRICS (0 to 5 YEARS) AND AT-RISK PATIENTS (6 to 49 YEARS) Aged Out No longer eligible based on patient's age to complete this topic Medical Devices Implanted Type Area Tableau Analyst Device Identifier Shelf Expiration Date Model / Serial / Lot Powerport Clearvue Slim- Implanted:Qty: 1 on 03/09/2021 by Varun Brown MD Port Right: Chest Wall [employer] 01/20/2022 / / [id number] Description:21 cm long Explanted Type Area Tableau Analyst Device Identifier Shelf Expiration Date Model / Serial / Lot Cath Port Powerport 6fr Implanted:Qty: 1 on 03/04/2020 by Varun Brown MD Explanted:Qty: 1 on 03/09/2021 by Varun Brown MD Port Left: Chest Wall [employer] 12/21/2020 REF [id number] / / [id number] Description:Left chest wall Procedures Procedure Name Priority Date/Time Associated Diagnosis Comments BASIC METABOLIC PANEL STAT 03/06/2021 2:32 AM AREA PLANT MANAGER from Last 3 Months or Most Recently Relevant to Health Maintenance Results * (ABNORMAL) Basic metabolic panel (03/06/2021 2:32 AM AREA PLANT MANAGER) Sodium 140 133 - 144 mmol/L 03/06/2021 3:02 AM [facility] Potassium 4.0 3.4 - 5.3 mmol/L 03/06/2021 3:02 AM [facility] Chloride 109 94 - 109 mmol/L 03/06/2021 3:02 AM [facility] Carbon Dioxide (CO2) 27 20 - 32 mmol/L 03/06/2021 3:02 AM [facility] Anion Gap 4 3 - 14 mmol/L 03/06/2021 3:02 AM [facility] Urea Nitrogen 6(L) 7 - 30 mg/dL 03/06/2021 3:02 AM [facility] Creatinine 0.68 0.52 - 1.04 mg/dL 03/06/2021 3:02 AM [facility] Calcium 9.4 8.5 - 10.1 mg/dL 03/06/2021 3:02 AM [facility] Glucose 88 70 - 99 mg/dL 03/06/2021 3:02 AM [facility] GFR Estimate >90 >60 mL/min/1.7 3m2 03/06/2021 3:02 AM [facility] Comment:As of October 31, 2020, eGFR is calculated by the CKD-EPI creatinine equation, without race adjustment. eGFR can be influenced by muscle mass, exercise, and diet. The reported eGFR is an estimation only and is only applicable if the renal function is stable. Blood VENOUS LINE / Unknown Venipuncture / Unknown 03/06/2021 2:32 AM AREA PLANT MANAGER 03/06/2021 2:44 AM [facility] Mag Powell MD LAB - BLOOD ORDERABLES Final Result LABORATORY [facility] [address], [address] [place] [address], [facility] [phone] from Last 3 Months or Most Recently Relevant to Health Maintenance Insurance none (Work) [id number] [address] [id number] [facility] Advance Directives For more information, please contact: [phone] * Full Code (Latest Code Status on File) Date Activated Date Inactivated Comments 02/27/2017 7:20 PM 02/28/2017 3:31 PM * Full Code Date Activated Date Inactivated Comments 09/07/2016 1:55 AM 09/07/2016 3:24 PM Care Teams Radio Time Salesperson Relationship Specialty Start Date End Date Candice Ayala MD PCP - General Family Practice 08/30/17 Salomon Sousa MD Clinical Cardiac Electrophysiology 10/16/18 Abhilash Christian MD [address] [id number] Cardiology 10/16/18 Marina Braga, RN Specialty Emergency Medicine Nurse Practitioner Clinical Cardiac Electrophysiology 03/10/19 Salomon Sousa MD Assigned Heart and Vascular Provider 02/13/20 Amy Padron APRN TRANSPORTATION MAINTENANCE SUPERVISOR [address] [place] [address] Nurse Practitioner Cardiovascular Disease 04/09/23 Salomon Sousa MD [address] [place] [address] Home Infusion Following Provider Cardiovascular Disease 02/11/24
--- OUTSIDE RECORDS SUMMARY | 2025-01-01 21:32 | XMS_ITS | Encounter Summary ---
Author Organization [facility] Address [address] [place] [address] Care Team Providers Care Professor Of Forest Planning Name Role Phone Candice Ayala MD Primary Care Provider + [phone] Salomon Sousa MD Unavailable [phone] Abhilash Christian MD Unavailable [phone] Marina Braga RN Unavailable Unavailable Salomon Sousa MD Unavailable [phone] Amy Padron APRN CRYPTOGRAPHIC MACHINE OPERATOR Unavailable + Salomon Sousa MD Unavailable [phone] Encounter Details Date Type Department Care Team (Late st Contact Info) Description 12/15/2024 Home Infusion [facility] [address] [place] [address] Carlota Buenrostro [facility] [address] [place] [address] Social History Tobacco Use Types [...] on file Legal Sex Female 4:13 AM DIRECTOR OF SUSTAINABILITY Gender Identity Not on file Sexual Orientation Not on file 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 Clinic [address] [phone] Salomon Sousa MD [address] [place] [phone] documented as of this encounter Visit Diagnoses Not on filedocumented in this encounter Additional Health Concerns Assessment Noted Time PHQ-9 Depression Total Score: 7 07/05/19 24 4:37 PM CDT documented as of this encounter Care Teams Professor Of Forest Planning Relationship Specialty Start Date End Date Candice Ayala MD PCP - General Family Practice 08/30/17 Salomon Sousa MD Clinical Cardiac Electrophysiology 10/16/18 Abhilash Christian MD [phone] [place] [address] Cardiology 10/16/18 Marina Braga, RN Specialty Offshore Wind Operations Manager Clinical Cardiac Electrophysiology 03/10/19 Salomon Sousa MD Assigned Heart and Vascular Provider 02/13/20 Amy Padron APRN CRYPTOGRAPHIC MACHINE OPERATOR [address] [place] [address] Nurse Practitioner Cardiovascular Disease 04/09/23 Salomon Sousa MD [address] [place] [address] Home Infusion Following Provider Cardiovascular Disease 02/11/24 documented as of this encounter
--- OUTSIDE RECORDS SUMMARY | 2025-01-01 21:32 | XMS_ITS | Encounter Summary ---
Author Organization [facility] Address [address] [place] [address] Care Team Providers Care Fire Engine Operator Name Role Phone Candice Ayala MD Primary Care Provider + [phone] Salomon Sousa MD Unavailable [phone] Abhilash Christian MD Unavailable [phone] Marina Braga RN Unavailable Unavailable BendSalomon bernal MD Unavailable [phone] Amy Padron FORENSIC ARTIST VISITING TEACHER Unavailable + Alana Rodriguez FORENSIC ARTIST VISITING TEACHER Unavailable [phone] Salomon Sousa MD Unavailable [phone] Encounter Details Date Type Department Care Team (Late st Contact Info) Description 02/21/2024 Home Infusion [facility] [address] [place] [phone] Martha Colindres [facility] Social History Tobacco Use Types Packs/Day [...] on file Legal Sex Female 4:13 AM PILATES COORDINATOR Gender Identity Not on file Sexual Orientation Not on file 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 Not on file documented as of this encounter Plan of Treatment Upcoming Encounters Date Type Department Care Team (Late st Contact Info) Description 05/28/2025 12:00 PM PILATES COORDINATOR Virtual Visit [facility] Clinic [address] [phone] Salomon Sousa MD [address] [place] [address] 600885 documented as of this encounter Visit Diagnoses Not on filedocumented in this encounter Additional Health Concerns Assessment Noted Time PHQ-9 Depression Total Score: 7 07/05/19 24 4:37 PM CDT documented as of this encounter Care Teams Fire Engine Operator Relationship Specialty Start Date End Date Candice Ayala MD PCP - General Family Practice 08/30/17 Salomon Sousa MD Clinical Cardiac Electrophysiology 10/16/18 Abhilash Christian MD [address] [address] Cardiology 10/16/18 Marina Braga, RN Specialty Data Typist Clinical Cardiac Electrophysiology 03/10/19 Salomon Sousa MD Assigned Heart and Vascular Provider 02/13/20 Amy Padron APRN VISITING TEACHER [address] [place] [address] Nurse Practitioner Cardiovascular Disease 04/09/23 Alana Rodriguez APRN VISITING TEACHER [address] [place] [address] Assigned Surgical Provider 05/05/23 11/11/24 Salomon Sousa MD [address] [place], [place] [phone] Home Infusion Following Provider Cardiovascular Disease 02/11/24 documented as of this encounter
--- OUTSIDE RECORDS SUMMARY | 2025-01-01 21:32 | XMS_ITS | Encounter Summary ---
Author Organization [facility] Address [address] [place] [address] Care Team Providers Care Special Agent In Charge Name Role Phone Candice Ayala MD Primary Care Provider + [phone] Salomon Sousa MD Unavailable [phone] Abhilash Christian MD Unavailable [phone] Marina Braga RN Unavailable Unavailable BendSalomon bernal MD Unavailable [phone] Amy Padron INDUSTRIAL AUTOMATION SPECIALIST ADOBE DEVELOPER Unavailable + Alana Rodriguez INDUSTRIAL AUTOMATION SPECIALIST ADOBE DEVELOPER Unavailable [phone] Salomon Sousa MD Unavailable [phone] Encounter Details Date Type Department Care Team (Late st Contact Info) Description 06/08/2022 MyC Medical Advice [facility] [address] [phone] Laquita Langston, PLAYGROUND ATTENDANT Social History Tobacco Use Types Packs/Day Years Used Date Smoking Tobacco: Never Smokeless Tobacco: Never Alcohol Use Standard Drinks/Week Comments Yes 3.3 (1 standard drink = 0.6 oz p ure alcohol) occas Comments No Sex and Gender Information Value Date Recorded Sex Assigned at Not on file Legal Sex Female 4:13 AM NEURORADIOLOGIST Gender Identity Not on file Sexual Orientation Not on file 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 Not on file documented as of this encounter Plan of Treatment Upcoming Encounters Date Type Department Care Team (Late st Contact Info) Description 05/28/2025 12:00 PM NEURORADIOLOGIST Virtual Visit [facility] [address] [phone] Salomon Sousa MD [address] [place] [address] [phone] documented as of this encounter Visit Diagnoses Not on filedocumented in this encounter Care Teams Special Agent In Charge Relationship Specialty Start Date End Date Candice Ayala MD PCP - General Family Practice 08/30/17 Salomon Sousa MD Clinical Cardiac Electrophysiology 10/16/18 Abhilash Christian MD [address] [address] Cardiology 10/16/18 Marina Braga, RN Specialty Boiler Tester Clinical Cardiac Electrophysiology 03/10/19 Salomon Sousa MD Assigned Heart and Vascular Provider 02/13/20 Amy Padron APRN ADOBE DEVELOPER [address] [place] [address] [phone] Nurse Practitioner Cardiovascular Disease 04/09/23 Alana Rodriugez APRN ADOBE DEVELOPER [address] [place] [address] [phone] Assigned Surgical Provider 05/05/23 11/11/24 Salomon Sousa MD [address] [place] [phone] Home Infusion Following Provider Cardiovascular Disease 02/11/24 documented as of this encounter
--- OUTSIDE RECORDS SUMMARY | 2025-01-01 21:32 | XMS_ITS | Encounter Summary ---
Author Organization [facility] Address [address] [place] [address] Care Team Providers Care Body And Fender Mechanic Name Role Phone Candice Ayala MD Primary Care Provider Encounter Details Date Type Department Care Team (Late st Contact Info) Description 12/11/2024 Notes/Orders [facility] [address] [facility] [place], [place] [phone] Ale Arnold MD [address] [place], [place] [phone] Social History Tobacco Use Types Packs/Day Years [...] on file documented as of this encounter Progress Notes * Ale Arnold MD - 12/11/2024 6:25 PM CDT Triage, please help pt get appt in primary care--she is interested in weight management options--didn't qualify for bariatrics as her bmi is 25, but would like care to help keep weight stable. If I interpret her last message correctly, I think she is asking us to help her get appt in primary care. Thanks -Ale Arnold MD 6:27 PM 12/11/2024 documented in this encounter Plan of Treatment Upcoming Encounters Date Type Department Care Team (Late st Contact Info) Description 01/05/2025 9:00 AM CDT Appointment [facility] [address] [facility] [place] [address] [place] [phone] Yany Faye MD [address] [facility] [address] [place] [phone] 01/05/2025 10:00 AM CDT Appointment [facility] [address] [place] [address] [place] [phone] Yany Faye MD [address] [phone] 01/05/2025 11:00 AM CDT Appointment [facility] [address] [address] [place] [address] [place] [phone] Yany Faye MD [address] [phone] 03/03/2025 8:00 AM DIRECTOR TALENT Appointment [facility] [address] [place] [address] 03/05/2025 11:20 AM DIRECTOR TALENT [facility] [address] [place] [address] Lexy Park MD [address] [facility] [address] [place], [place] [phone] documented as of this encounter Visit Diagnoses Not on filedocumented in this encounter Care Teams Body And Fender Mechanic Relationship Specialty [place] [address] [address] [address] PCP - General Family Practice 09/07/16 documented as of this encounter
--- OUTSIDE RECORDS SUMMARY | 2025-01-01 21:32 | XMS_ITS | Encounter Summary ---
Author Organization [facility] Address [address] [place] [address] Care Team Providers Care Hide Stretcher Hand Name Role Phone Candice Ayala MD Primary Care Provider + [phone] Salomon Sousa MD Unavailable [phone] Abhilash Christian MD Unavailable [phone] Marina Braga RN Unavailable Unavailable Salomon Sousa MD Unavailable [phone] Amy Padron MAPPING TECHNICIAN VARNISH INSPECTOR Unavailable + Alana Rodriguez MAPPING TECHNICIAN VARNISH INSPECTOR Unavailable [phone] Salomon Sousa MD Unavailable [phone] Encounter Details Date Type Department Care Team (Late st Contact Info) Description 09/30/2021 [facility] Heart Clinic [address] [phone] [facility] Social History Tobacco Use Types Packs/Day Years Used Date Smoking Tobacco: Never Smokeless Tobacco: Never Alcohol Use Standard Drinks/Week Comments Yes 3.3 (1 standard drink = 0.6 oz p ure alcohol) occas Comments No Sex and Gender Information Value Date Recorded Sex Assigned at Not on file Legal Sex Female 4:13 AM DEVELOPMENTAL BEHAVIORAL PHYSICIAN Gender Identity Not on file Sexual Orientation Not on file 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 Not on file documented as of this encounter Plan of Treatment Upcoming Encounters Date Type Department Care Team (Late st Contact Info) Description 05/28/2025 12:00 PM DEVELOPMENTAL BEHAVIORAL PHYSICIAN Virtual Visit [facility] [address] [phone] Salomon Sousa MD [address] [place] [address] [phone] documented as of this encounter Visit Diagnoses Not on filedocumented in this encounter Care Teams Hide Stretcher Hand Relationship Specialty Start Date End Date Candice Ayala MD PCP - General Family Practice 08/30/17 Salomon Sousa MD Clinical Cardiac Electrophysiology 10/16/18 Abhilash Christian MD [address] [address] Cardiology 10/16/18 Mairna Braga, RN Specialty Websphere Process Server Developer Clinical Cardiac Electrophysiology 03/10/19 Salomon Sousa MD Assigned Heart and Vascular Provider 02/13/20 Amy Padron APRN VARNISH INSPECTOR [address] [place] [address] [phone] Nurse Practitioner Cardiovascular Disease 04/09/23 Alana Rodriguez APRN VARNISH INSPECTOR [address] [place] [address] Assigned Surgical Provider 05/05/23 11/11/24 Salomon Sousa MD [address] [place] [address] [phone] Home Infusion Following Provider Cardiovascular Disease 02/11/24 documented as of this encounter
--- OUTSIDE RECORDS SUMMARY | 2025-01-01 21:32 | XMS_ITS | Encounter Summary ---
Author Organization [employer] Address [address] [place] [address] Care Team Providers Care Paper Mill Supervisor Name Role Phone Maida Ayala MD Primary Care Provider [phone] Reason for Visit * Reason Onset Date Comments Refill 11/17/2024 aluminum chlorid e (DRYSOL) 20 % external solution Encounter Details Date Type Department Care Team (Late st Contact Info) Description 11/17/2024 Refill [facility] Medicine [address] [place] [address] [place] [id number] [place] [address] [place] [id number] Refill (aluminum chloride (DRYSOL) 20 % external [...] as of this encounter Nursing Notes * Harriett Rosen, CAR CLEANING SUPERVISOR - 11/17/2024 3:22 PM CDT Pt informed of Rx. * Maida Ayala MD - 11/17/2024 10:59 AM CDT Prescription faxed. Thanks * Jocelyne Jimenez - 11/17/2024 10:28 AM CDT COPIED FROM [facility]PL[facility]FI[facility] ENCOUNTER Received fax from pharmacy stating theres a back order with no eta on when they will have the medication. And if we can send it to another pharmacy. * Vinita Finn Xrwcomm - 11/17/2024 10:28 AM CDT aluminum chloride (DRYSOL) 20 % external solution Medication started: 07/31/2024 Last ordered by MAIDA AYALA: 11/08/2024 (9 days ago) QTY: 35, Refills: 10, Sig: apply topically every evening. apply sparingly to skin with excessive sweating for 1-5 nights to get appropriate response (unchanged) -> Medication cannot be delegated. Last qualifying visit: 07/31/2024 (with MAIDA AYALA) Next scheduled visit: [facility] Embedded Refills, Reference: [id number], 11/17/2024 10:28:27 AM CDT, Pool: PN Refill Centralized Services - Primary Care [[id number]] ([id number]) documented in this encounter Plan of Treatment Upcoming Encounters Date Type Department Care Team (Late st Contact Info) Description 01/05/2025 9:00 AM CDT Appointment [facility] [place] [address] Radiology MRI [address] [place] [phone] [place] [address] [place] [address] 01/05/2025 10:00 AM CDT Appointment [facility] [place] [address] [place] [address] [place] [phone] Yany Faye MD [address] [address] 01/05/2025 11:00 AM CDT Appointment [facility] [place] [address] [place] [address] [place] [phone] Yany Faye MD [address] [address] 03/03/2025 8:00 AM PREPARATION OPERATOR Appointment [facility] [address] [place] [address] 03/05/2025 11:20 AM PREPARATION OPERATOR [facility] 3931 Neurology 3931 [place] [address] Lexy Park MD [address] [place] [address] [place] [address] documented as of this encounter Visit Diagnoses Not on filedocumented in this encounter Care Teams Paper Mill Supervisor Relationship Specialty [place] [address] [facility] [place] [address] PCP - General Family Practice 09/07/16 documented as of this encounter
--- OUTSIDE RECORDS SUMMARY | 2025-01-01 21:32 | XMS_ITS | Encounter Summary ---
Author Organization [employer] Address [address] [place] [address] Care Team Providers Care Drop Forge Operator Name Role Phone Candice Ayala MD Primary Care Provider + [phone] Salomon Sousa MD Unavailable [phone] Abhilash Christian MD Unavailable [phone] Marina Braga RN Unavailable Unavailable Salomon Sousa MD Unavailable [phone] Amy Padron SPUDDER ENDLESS TRACK VEHICLE SUPERVISOR Unavailable + Alana Rodriguez SPUDDER ENDLESS TRACK VEHICLE SUPERVISOR Unavailable [phone] Salomon Sousa MD Unavailable [phone] Encounter Details Date Type Department Care Team (Late st Contact Info) Description 09/27/2021 [facility] [address] [address] [facility] Social History Tobacco Use Types Packs/Day Years Used Date Smoking Tobacco: Never Smokeless Tobacco: Never Alcohol Use Standard Drinks/Week Comments Yes 3.3 (1 standard drink = 0.6 oz p ure alcohol) occas Comments No Sex and Gender Information Value Date Recorded Sex Assigned at Not on file Legal Sex Female 4:13 AM PET CARE WORKER Gender Identity Not on file Sexual Orientation Not on file 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 file Not on file documented as of this encounter Plan of Treatment Upcoming Encounters Date Type Department Care Team (Late st Contact Info) Description 05/28/2025 12:00 PM PET CARE WORKER Virtual Visit [facility] [address] [phone] Salomon Sousa MD [address] [place] [address] documented as of this encounter Visit Diagnoses Not on filedocumented in this encounter Care Teams Drop Forge Operator Relationship Specialty Start Date End Date Candice Ayala MD PCP - General Family Practice 08/30/17 Salomon Sousa MD Clinical Cardiac Electrophysiology 10/16/18 Abhilash Christian MD [address] [address] Cardiology 10/16/18 Marina Braga, RN Specialty Insurance Billing Specialist Clinical Cardiac Electrophysiology 03/10/19 Salomon Sousa MD Assigned Heart and Vascular Provider 02/13/20 Amy Padron APRN ENDLESS TRACK VEHICLE SUPERVISOR [address] [place] [address] [id number] Nurse Practitioner Cardiovascular Disease 04/09/23 Alana Rodriguez APRN ENDLESS TRACK VEHICLE SUPERVISOR [address] [place] [address] Assigned Surgical Provider 05/05/23 11/11/24 Salomon Sousa MD [address] [place] [address] [id number] Home Infusion Following Provider Cardiovascular Disease 02/11/24 documented as of this encounter
--- OUTSIDE RECORDS SUMMARY | 2025-01-01 21:32 | XMS_ITS | Encounter Summary ---
Author Organization [employer] Address [address] [place] [address] Care Team Providers Care Nurses Superintendent Name Role Phone Candice Ayala MD Primary Care Provider [phone] Encounter Details Date Type Department Care Team (Late st Contact Info) Description 12/09/2024 E-Visit [facility] 39[address] [facility] [address] [place] [address] Jade Godoy Social History Tobacco Use Types Packs/Day Years [...] Description 01/05/2025 9:00 AM CDT Appointment Bernadine [place] [address] [place] [address] [place] [address] Yany Faye MD [address] [place] [phone] 01/05/2025 10:00 AM CDT Appointment Bernadine [place] [address] [place] [address] [place] [phone] Yany Fyae MD [address]1800 [place] [phone] 01/05/2025 11:00 AM CDT Appointment Bernadine [facility]idal [place] [address] [place] [address] [place] [phone] Yany Faye MD [address] [phone] 03/03/2025 8:00 AM ELECTION SUPERVISOR Appointment [facility] [address] [place] [address] 03/05/2025 11:20 AM ELECTION SUPERVISOR [facility] 3931 Neurology 3931 [place] [address] Lexy Park MD [address] [address] documented as of this encounter Visit Diagnoses Not on filedocumented in this encounter Care Teams Nurses Superintendent Relationship Specialty [place] [address] [address] [place] [address] PCP - General Family Practice 09/07/16 documented as of this encounter
--- OUTSIDE RECORDS SUMMARY | 2025-01-01 21:32 | XMS_ITS | Encounter Summary ---
Author Organization [employer] Address [address] [place] [address] Care Team Providers Care Home Theater Specialist Name Role Phone Candice Ayala MD Primary Care Provider [phone] Reason for Visit * Reason Comments Follow-up Encounter Details Date Type Department Care Team (Late st Contact Info) Description 12/12/2024 [facility] [address] [facility] [place], [place] [phone] Ale Arnold MD [address] [employer] [place], [place] [phone] Follow-up Social History Tobacco Use Types Packs/Day Years [...] as of this encounter Nursing Notes * Bonnie Gonzalez RN - 12/12/2024 9:31 AM CDT Pt called and given message from Dr. Arnold. Pt verbalizes her understanding and agrees with planof care. No further questions at this time. Pt instructed to call staff with changes or concerns. Progress Notes Ale Arnold MD (Physician) BACTERIOLOGY TECHNICIAN Encounter Date: 12/11/2024 Signed Triage, please help pt get appt in [...] 01/05/2025 9:00 AM CDT Appointment Bernadine [facility] [address] Radiology MRI [address] [place] [phone] [place] [address] [place] [phone] 01/05/2025 10:00 AM CDT Appointment Bernadine [facility] [address] Rad[place] [address] [place] [address] [place] [address] [place] [address] 01/05/2025 11:00 AM CDT Appointment Bernadine [facility] [address] [place] [address] [place] [address] [place] [address] [place] [address] 03/03/2025 8:00 AM CERAMIC TILER Appointment [facility] [address] [place], [place] [address] 03/05/2025 11:20 AM CERAMIC TILER [facility] 3931 Neurology 3931 [place] [address] Lexy Park MD 3931 [facility] [address] [place], [place] [address] documented as of this encounter Visit Diagnoses Not on filedocumented in this encounter Care Teams Home Theater Specialist Relationship Specialty [place] [address] [facility] [place] [address] PCP - General Family Practice 09/07/16 documented as of this encounter
--- OUTSIDE RECORDS SUMMARY | 2025-01-01 21:32 | XMS_ITS | Encounter Summary ---
Author Organization [employer] Address [address] [place] [address] Care Team Providers Care Digital Media Producer Name Role Phone Candice Ayala MD Primary Care Provider + [phone] Salomon Sousa MD Unavailable [phone] Abhilash Christian MD Unavailable [phone] Marina Braga RN Unavailable Unavailable Salomon Sousa MD Unavailable [phone] Amy Padron APRN [facility] Unavailable + Salomon Sousa MD Unavailable [phone] Reason for Visit * Reason Onset Date Comments Call Back 11/26/2024 Medication quest ion Encounter Details Date Type Department Care Team (Late st Contact Info) Description 11/26/2024 Telephone [facility] Heart [address] [address] Salomon Sousa MD [address] [place] [address] Call Back (Medication question) Social History Tobacco Use Types Packs/Day Years [...] on file Legal Sex Female 4:13 AM MUSEUM INFORMATICS SPECIALIST Gender Identity Not on file Sexual Orientation Not on file 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 Sousa would recommend NAD+ for her infusions as her nurse had been taking about this. I let her know that it appears that this has not been studied and that it was unlikely that he would approve this, but she still wanted me to check with him. I will send a MyChart backto her regarding his answer. NORA Miles RN Electrophysiology Nurse Coordinator * Telephone Encounter - Ashley Lazcano - 11/26/2024 10:48 AM CDT [facility] Phone Message May a detailed message be left on voicemail: yes Reason for Call: Medication Question or concern regarding medication Pt would like a call back to discuss medications before her upcoming virtual appt. Please call backa t [phone] Action Taken: Other: Cardiology Travel Screening: Not Applicable Thank you! [facility] documented in this encounter Plan of Treatment Upcoming Encounters Date Type Department Care Team (Late st Contact Info) Description 05/28/2025 12:00 PM MUSEUM INFORMATICS SPECIALIST Virtual Visit [facility] Clinic [address] [address] Salomon Sousa MD [address] [place] [address] documented as of this encounter Visit Diagnoses Not on filedocumented in this encounter Additional Health Concerns Assessment Noted Time PHQ-9 Depression Total Score: 7 07/05/19 24 4:37 PM CDT documented as of this encounter Care Teams Digital Media Producer Relationship Specialty Start Date End Date Candice Ayala MD PCP - General Family Practice 08/30/17 Salomon oSusa MD Clinical Cardiac Electrophysiology 10/16/18 Abhilash Christian MD [address] [facility] [address] [place], [place] 8[address] Cardiology 10/16/18 Marina Braga, RN Specialty Paramedic Instructor Clinical Cardiac Electrophysiology 03/10/19 Salomon Sousa MD Assigned Heart and Vascular Provider 02/13/20 Amy Padron APRN MANAGER OF DEVELOPMENT 2450 [place], [place] 3705[address] Nurse Practitioner Cardiovascular Disease 04/09/23 Salomon Sousa MD 9 [place], [place] [address] Home Infusion Following Provider Cardiovascular Disease 02/11/24 documented as of this encounter
--- OUTSIDE RECORDS SUMMARY | 2025-01-01 21:32 | XMS_ITS | Encounter Summary ---
Author Organization [employer] Address [address] [place] [address] Care Team Providers Care Supervisor Newspaper Deliveries Name Role Phone Candice Ayala MD Primary Care Provider + [phone] Salomon Souas MD Unavailable [phone] Abhilash Christian MD Unavailable [phone] Marina Braga RN Unavailable Unavailable Salomon Sousa MD Unavailable [phone] Amy Padron LEAD SOFTWARE TESTER METAL FURNITURE ASSEMBLY SUPERVISOR Unavailable + Alana Rodriguez LEAD SOFTWARE TESTER METAL FURNITURE ASSEMBLY SUPERVISOR Unavailable [phone] Salomon Sousa MD Unavailable [phone] Encounter Details Date Type Department Care Team (Late st Contact Info) Description 01/12/2022 [facility] Medical Advice [address] [phone] 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 Not on file documented as of this encounter Plan of Treatment Upcoming Encounters Date Type Department Care Team (Late st Contact Info) Description 05/28/2025 12:00 PM MINESWEEPING OFFICER Virtual Visit [facility] [address] [phone] Salomon Sousa MD [address] [place] [address] documented as of this encounter Visit Diagnoses Not on filedocumented in this encounter Care Teams Supervisor Newspaper Deliveries Relationship Specialty Start Date End Date Candice Ayala MD PCP - General Family Practice 08/30/17 Salomon Sousa MD Clinical Cardiac Electrophysiology 10/16/18 Abhilash Christian MD [address] [address] Cardiology 10/16/18 Marina Braga, RN Specialty Employment Recruiter Clinical Cardiac Electrophysiology 03/10/19 Salomon Sousa MD Assigned Heart and Vascular Provider 02/13/20 Amy Padron APRN METAL FURNITURE ASSEMBLY SUPERVISOR [address] [place] [address]184 Nurse Practitioner Cardiovascular Disease 04/09/23 Alana Rodriguez APRN METAL FURNITURE ASSEMBLY SUPERVISOR [address] [place] [address] Assigned Surgical Provider 05/05/23 11/11/24 Salomon Sousa MD [address] [place] [phone] Home Infusion Following Provider Cardiovascular Disease 02/11/24 documented as of this encounter
--- OUTSIDE RECORDS SUMMARY | 2025-01-01 21:32 | XMS_ITS | Encounter Summary ---
Author Organization [employer] Address [address] [place] [address] Care Team Providers Care Liquid Compounder Name Role Phone Candice Ayala MD Primary Care Provider Encounter Details Date Type Department Care Team (Late st Contact Info) Description 12/09/2024 [facility] [address] [facility] [place], [place] [phone] Ale Arnold MD [address] [place], [place] [address] Social History Tobacco Use Types Packs/Day Years [...] as of this encounter Nursing Notes * Smiley Bustamante RN - 12/11/2024 2:13 PM CDT RN called pharmacy to confirm correct rx patches were received. Vivelle patches cancelled. * Ale Arnold MD - 12/11/2024 12:12 PM CDT New rx sent to [facility]--please confimr with [facility]: I sent vivelle Rx twice weekly thencancelled and sent new rx for climara weekly patches. Please let them know its the climara weekly patches I wanted (both 0.1 and 0.05 mg patches) (not vivelle) triage please be sure pt aware and confirm previous rx to local pharmacy was cancelled. Thanks Ale Arnold MD 12:12 PM 12/11/2024 * Shima [place] - 12/09/2024 10:[address] Arnold please advise on my chart message. documented in this encounter Plan of Treatment Upcoming Encounters Date Type Department Care Team (Late st Contact Info) Description 01/05/2025 9:00 AM CDT Appointment Bernadine [place] [address] Rad[address] [place] [address] [place] [address] Yany Faye MD [address] [phone] 01/05/2025 10:00 AM CDT Appointment Bernadine [place] [address] Radiology MRI [address] [place] [address] Yany Faye MD [address] [place] [address] 01/05/2025 11:00 AM CDT Appointment Bernadine [place] [address] Rad[place] [address] [place] [phone] Yany Faye MD 3931 [facility] [address] [place] [address] 03/03/2025 8:00 AM SAND SCREENER OPERATOR Appointment [facility] [address] [place], [place] [address]457 03/05/2025 11:20 AM SAND SCREENER OPERATOR [facility] 3931 Neurology 3931 [place] [address] Lexy Park MD [address] [facility] [address] [place] [address] documented as of this encounter Visit Diagnoses Not on filedocumented in this encounter Care Teams Liquid Compounder Relationship Specialty [place] [address] [place] [address] PCP - General Family Practice 09/07/16 documented as of this encounter
--- OUTSIDE RECORDS SUMMARY | 2025-01-01 21:32 | XMS_ITS ---
Author Organization [facility] Address [address] [place] [address] Care Team Providers Care English Drawer Name Role Phone Candice Ayala MD Primary Care Provider [phone] Salomon Sousa MD Unavailable [phone] Abhilash Christian MD Unavailable [phone] Marina Braga RN Unavailable Unavailable Salomon Sousa MD Unavailable [phone] Amy Padron APRN SOURCING CONSULTANT Unavailable + Salomon Sousa MD Unavailable [phone] Hydration Therapy Status:Enrolled (Active) Start date:12/27/2023 Enrollment date:12/28/2023 Linked medications:Lactated Ringers (Active) Linked problems:Mast cell activation, unspecified (Active) Related program episode:Home Infusion (Active) Continued Care and Services Coordination This section includes services coordinated for Hydration Therapy. [facility] Name Services Phone [facility] Home Nurs [facility] [phone]
--- OUTSIDE RECORDS SUMMARY | 2025-01-01 21:32 | XMS_ITS | Clinical Summary ---
Author Organization [facility] Address [address] [place] [address] Care Team Providers Care Record Press Supervisor Name Role Phone Candice Ayala MD Primary Care Provider [phone] Source Comments You are receiving this document as you are listed as the primary care provider,follow-up provider, or the patient has been referred to you for consultation.This is in compliance with the Medicare and[facility] EHR Incentive Program,which states Providers who transition their patient to another setting of careor provider of care or refers their patient to another provider of care shouldprovide summary care record for each transition of care or referral. [employer] Allergies Active Allergy Reactions Criticality Noted Date Comments Adhesive Hives High 01/25/2018 Beta Adrenergic Blockers 02/05/2018 CONTRAINDICATION WHILE ON ALLERGY INJECTIONS Dog Epithelium Other, see comments 01/25/2018 She says she's not allergic to dogs. Hydrocodone-Acetamino phen Gastrointestinal 03/16/2017 Other reaction(s): nausea Medications midodrine (PROAMATINE) 10 MG tabletIndicati ons:SVT (supraventricu lar tachycardia) (HRC),POTS (postural orthostatic tachycardia syndrome) Take 1 Tablet by mouth three times a day. 90 Tablet 2 019 Active EPINEPHrine (EPIPEN) 0.3 MG/0.3ML injectionIndic ations:Mast cell activation (HRC) Inject 0.3 mL (0.3 mg) intramuscularly as needed. May repeat. 2 Each 3 Active aluminum chloride (DRYSOL) 20 % external solution Apply topically every evening. apply sparingly to skin with excessive sweating for 1-5 nights to get appropriate response 35 mL 10 Active aluminum chloride (DRYSOL) 20 % external solution Apply topically every evening. apply sparingly to skin with excessive sweating for 1-5 nights to get appropriate response 35 mL 10 025 Active diazePAM (VALIUM) 2 MG tablet Take 1 Tablet (2 mg) by mouth at bedtime as needed for Anxiety. Do not start before November 21, 2024. 10 Tablet Active estradiol (CLIMARA) 0.1 MG/24HR weekly patch Apply 1 Patch to skin once every week. Apply with 0.05 mg patch for total 0.15 mg weekly 12 Patch 3 025 2025 Active estradiol (CLIMARA) 0.05 MG/24HR weekly patch Apply 1 Patch to skin once every week. Apply along with 0.1 mg patch weekly for total 0.15 mg weekly 12 Patch 3 025 2025 Active lamoTRIgine (LAMICTAL) 25 MG tablet Take 1 Tablet (25 mg) by mouth daily. HAS NOT STARTED TAKING OF 12/16/24 Active lactated ringers infusion Administer intravenously three times a week. Active indomethacin (INDOCIN) 50 MG capsule Take 1 Capsule (50 mg) by mouth 4 times a day with meals. 1 capsule 3 times a day with food and 1 OTC Prilosec a day during flare up. 90 Capsule Active ARIPiprazole (ABILIFY) 2 MG tablet Take 2 Tablets (4 mg) by mouth daily. 180 Tablet Active cromolyn (NASALCROM) 5.2 MG/ACT nasal solution 1 Stewart by Nasal route. 019 2024 Discontinued(E rroneous Entry/Duplicat e/Other) EPINEPHrine (EPIPEN) 0.3 MG/0.3ML injection Inject 0.3 mL (0.3 mg) intramuscularly. 018 2024 Discontinued(E rroneous Entry/Duplicat e/Other) medical cannabis patient certifiedIndic ations:Myofasc ial pain syndrome,Pain of both hip joints,Chronic pain of both knees,Chronic elbow pain, unspecified laterality,Med ical marijuana use Take as instructed . 2024 Discontinued(E rroneous Entry/Duplicat e/Other) estradiol (ESTRACE) 1 MG tabletIndicati ons:Surgical menopause on hormone replacement therapy Take 1 Tablet (1 mg) by mouth daily. Take with 2mg tab for a total of 3mg daily. 90 Tablet 3 022 2024 Discontinued estradiol 2 MG tabletIndicati ons:Surgical menopause on hormone replacement therapy Take 1 Tablet (2 mg) by mouth daily. Needs appointment before further refills 90 Tablet 3 022 2024 Discontinued(* Med change OR same med OR reorder, new dose/direction s) ARIPiprazole (ABILIFY) 2 MG tablet Take 2 Tablets (4 mg) by mouth daily. 60 Tablet 025 2024 Discontinued(* Med change OR same med OR reorder, new dose/direction s) estradiol (ESTRACE) 1 MG tablet Taking with 2 mg tablet for total 3 mg po daily 30 Tablet 1 025 2024 Discontinued estradiol 2 MG tabletIndicati ons:Surgical menopause on hormone replacement therapy Taking with 1 mg tablet for total 3 mg daily 30 Tablet 3 025 2024 Discontinued estradiol (VIVELLEDOT) 0.1 MG/24HR biweekly patch Apply 1 Patch to skin two times a week. Also apply 0.05 mg patch twice weekly for total of 0.15 mg twice weekly 24 Each 3 025 2024 Discontinued estradiol (VIVELLEDOT) 0.05 MG/24HR biweekly patch Apply 1 Patch to skin two times a week. Also apply 0.05 mg patch twice weekly for total of 0.15 mg twice weekly 24 Each 3 025 2024 Discontinued Active Problems Problem Noted Date Diagnosed Date Hyperreflexia 12/16/2024 Paresthesias 12/16/2024 Postsurgical menopause 12/16/2024 Mast cell activation, unspecified 02/01/2024 POTS (postural orthostatic tachycardia syndrome) 08/30/2018 Autism spectrum disorder requiring support (leve l 1) 08/25/2018 STEPHANIE (generalized anxiety disorder) 08/25/2018 Panic disorder 08/25/2018 Borderline personality disorder 01/18/2018 Fibromyalgia 12/20/2017 Arthralgia 12/07/2017 SVT (supraventricular tachycardia) 12/07/2017 Syncope 12/07/2017 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 Obsessive-compulsive disorder with good or fair insight 01/02/2017 S/P hysterectomy with oophorectomy 03/07/2011 Tourette syndrome 03/07/2011 Insomnia 03/07/2011 Endometriosis 06/24/2010 Learning disorder 05/07/2009 Tourette's Resolved Problems Problem Noted Date Diagnosed Date Resolved Date Trigeminal neuralgia 01/02/2017 018 Seizure disorder 01/02/2017 11/14/2017 Emotional depression 03/07/2011 018 Mood swings 03/07/2011 01/21/2018 Depression 01/21/2018 Encounters Date Type Department Care Team Description 12/29/2024 Telephone [facility] [address] [facility] [place] [address] Amy Levy, BOILER SHOP SUPERVISOR, RELIEF MANAGER Medication Request (90 day supply request: ARIPiprazole (ABILIFY) 2 MG tablet) 12/16/2024 1:30 PM CDT Office Visit [facility] 3931 Neurology [address] [place] [address] Yany Faye MD Trigeminal autonomic cephalgias (Primary Dx); Hyperreflexia; Paresthesias; Postsurgical menopause 12/12/2024 Telephone [facility] Obstetrics/Gynecolo gy [address] [facility] [place] [address] Ale Arnold MD Follow-up 12/11/2024 Notes/Orders [facility] Obstetrics/Gynecolo gy [address] [place] [address] Ale Arnold MD 12/09/2024 E-Visit [facility] [address] [facility] [address] [place] [address] [place] Krishnan Pancho 12/09/2024 E-Visit [facility] Obstetrics/Gynecolo gy [address] [place] [address] Ale Arnold MD 12/08/2024 11:30 AM CDT Telemedicine [facility] Obstetrics/Gynecolo gy [address] [place] [address] Ale Arnold MD Surgical menopause on hormone replacement therapy (Primary Dx); Hair loss; Unable to maintain weight; Menopausal vasomotor syndrome; S/P hysterectomy with oophorectomy; Encounter for screening for osteoporosis 12/03/2024 Telephone [facility]-LOG HANDLING EQUIPMENT OPERATOR [address] [facility] [address] [place] [address] Claudia Cochran APRN, RELIEF MANAGER Refill 11/17/2024 Refill [facility] [address] [place] [address] Candice Ayala MD Refill (aluminum chloride (DRYSOL) 20 % external solution) 11/17/2024 Telephone [facility] [id number] [facility] [place] [address] Amy Levy APRN, RELIEF MANAGER Medication Problems 11/17/2024 Refill [facility] [address] [place] [address] Candice Ayala MD Refill (aluminum chloride (DRYSOL) 20 % external solution) 11/08/2024 Notes/Orders [facility] [address] [place] [address] Candice Ayala MD Hyperhidrosis of axilla (Primary Dx) 11/07/2024 Telephone [facility] [address] [place] [address] Candice Ayala MD Medication Questions 11/05/2024 8:00 AM CDT Telemedicine [facility] [address] Psychiatry [address] [facility] [place] [address] Amy Levy APRN, CNP Obsessive-compulsive disorder with good or fair insight (Primary Dx); Autism spectrum disorder requiring support (level 1) (HRC); STEPHANIE (generalized anxiety disorder) (HRC); Borderline personality disorder (HRC); Tourette syndrome; Panic disorder (HRC); Learning disorder from Last 3 Months Immunizations Immunization Administration Dates Next Due DTP 01/23/1997, 9,01/19/1987,07/14/1986,0 05/13/1986 Hib, Unspecified Formulation 08/18/1986 MMR 02/28/1990,04/01/1986 Polio, Unspecified Formulation 01/23/1997,1988,07/14/1986,05/13/1986 Td 04/02/2006 Tetanus 04/23/2005 Family History Medical History Relation Name Comments Depression Mother Schizophrenia Maternal Grandmother Heart Attack Paternal Grandmother grandmo thers sister also had ND Heart Disease Paternal Grandmother Blindness Negative Family History Brain Aneurysm Negative Family History Cancer, Breast Negative Family History Cancer, Colon Negative Family History Cancer, Ovary Negative Family History Cataract Negative Family History Glaucoma Negative Family History Macular Degeneration Negative Family History Migraines Negative Family History Retinal Detachment Negative Family History Stroke Negative Family History Relation Name Status Comments Father Alive Hep C Mother Alive hep C Brother 1 Alive Brother 2 Alive Maternal Grandfather Maternal Grandmother Paternal Grandfather Paternal Grandmother Sister 1 Alive Sister 2 Alive Social History Tobacco Use Types Packs/Day Years Used Date Smoking Tobacco: Never Smokeless Tobacco: Never Tobacco Cessation:Counseling Given: Not Answered Alcohol Use Standard Drinks/Week Comments Yes 1 [...] Pulse 69 12/16/2024 1:32 PM CDT Temperature 37.2 C (98.9 F) 08/17/2024 10:51 AM CDT Respiratory Rate 14 12/16/2024 1:32 PM CDT Oxygen Saturation 100% 08/17/2024 10:51 AM CDT Inhaled Oxygen Concentration - - Weight 72.1 kg (159 lb) 12/16/2024 1:32 PM CDT Height 165.1 cm (5' 5) 07/31/2024 9:27 AM CDT Body Mass Index 26.46 07/31/2024 9:27 AM CDT Plan of Treatment Upcoming Encounters Date Type Department Care Team (Late st Contact Info) Description 01/05/2025 9:00 AM CDT Appointment [facility] [address] [address] [address] [place] [phone] Yany Faye MD [address] [phone] 01/05/2025 10:00 AM CDT Appointment [facility] [place] [place] [address] [address] [place] [address] [place] [phone] Yany Faye MD [address] [phone] 01/05/2025 11:00 AM CDT Appointment [facility] [place] [address] [address] [place] [address] [place] [phone] Yany Faye MD [address] [phone] 03/03/2025 8:00 AM MACHINE STAPLER Appointment [facility] [address] [place] [address] 03/05/2025 11:20 AM MACHINE STAPLER [facility] 39[address] Neurology [address] [place] [address] Lexy Park MD [address] [facility] [address] [place] [address] Health Maintenance Due Date Last Done Comments HepB Vaccine (1) 2003 HPV Vaccine (1 - 3-dose SCDM series) 2011 DTaP/Tdap/Td Vaccine (8 - Tdap) 04/02/2016 04/02/2006, 04/23/2005, 01/23/1997, Additional history exists Colonoscopy 07/26/2019 07/25/2019 COVID-19 Vaccine ( - season) 2024 Influenza Vaccine (#1) 2024 Mammogram 07/31/2025 07/31/2024 Prediabetes: HGBA1C 07/31/2025 07/31/2024, 9 Adult Preventive Visit 07/31/2026 5, 02/24/2022, 06/30/2019, Additional history exists Zoster/Shingles Vaccine (1 of 2) 2034 Hib Vaccine Completed 08/18/1986 IPV (Polio) Vaccine Completed 01/23/1997, 05/03/1988, 07/14/1986, Additional history exists HIV Screening (Preventive Services) Completed 11/23/2010 Hep C Screening (Preventive Services) Completed 01/02/2017 HepA Vaccine Aged Out No longer eligi ble based on patient's age to complete this topic MCV4 Vaccine Aged Out No longer eligi ble based on patient's age to complete this topic Meningococcal B Vaccine Aged Out No l onger eligible based on patient's age to complete this topic Pneumococcal Vaccine Aged Out No long er eligible based on patient's age to complete this topic Procedures Procedure Name Priority Date/Time Associated Diagnosis Comments HGB A1C Routine 07/31/2024 10:49 AM CDT Prediabetes MM MAMMOGRAM SCREENING BILAT W 3D SERGIO W CAD Routine 07/31/2024 10:39 AM CDT Encounter for screening mammogram for malignant neoplasm of breast COLONOSCOPY S 07/25/2019 HIV ANTIBODY STAT 11/23/2010 3:53 PM CDT Screening from Last 3 Months or Most Recently Relevant to Health Maintenance Results * Hgb A1C (07/31/2024 10:49 AM CDT) Hemoglobin A1C (Rapid) 4.8 <=5.6 % 07/31/2024 11:08 AM CDT [facility] Estimated Average Glucose (Calc) 91 < 117 mg/dL 07/31/2024 11:08 AM T [facility] Comment:Estimated average gl ucose (eAG) converts A1c into glucose units (mg/dL) and estimates average glucose over the past approximately 3 months. The eAG reference interval (<117 mg/dL) corresponds to an A1c of <5.7%. Blood Venipuncture / Unknown 07/31/2024 10:49 AM CDT 07/31/2024 10:49 AM CDT Narrative [facility] - 07/31/2024 11:08 AM CDT The test method used for this Hemoglobin A1c result can experience interference from elevated hemoglobin and other hemoglobin variants. In patients with results that do not correlate clinically, contact the lab for further direction. us Candice Ayala MD LAB_1 Final Result [facility] [address] [place] [address] * MM Mammogram Screening Bilat W 3D Sergio W CAD (07/31/2024 10:39 AM CDT) Anatomical Region Laterality Modality Breast Bilateral Mammography Impressions 07/31/2024 10:56 AM CDT : ACR BI-RADS Category 1: Negative RECOMMENDATION: Follow Up Imaging in 12 months - Bilateral The results and recommendations of this examination will be communicated to the patient. Narrative 07/31/2024 10:56 AM CDT MM MAMMOGRAM SCREENING BILAT W 3D SERGIO W CAD performed on 07/31/24 [facility] Accredited Facility: [place] [address] No comparisons were made when reading this study. Baseline. FINDINGS: Bilateral screening mammogram was performed with the assistance of Computer-Aided Detection and breast tomosynthesis. The breasts are heterogeneously dense, which may obscure small masses. There is no radiographic evidence of malignancy. Candice Ayala MD RAD SOWMYA Final Result * COLONOSCOPY S (07/25/2019) Candice Ayala MD DUMMY/OTHER/AR Final Result * HIV ANTIBODY (11/23/2010 3:53 PM CDT) HIV 1/HIV 2 Non-React Non-Reacti ve HP CONVERSION 11/23/2010 3:53 PM CDT 11/23/2010 6:53 PM CDT Gabriella Van MD LAB_1 Final Result HP CONVERSION from Last 3 Months or Most Recently Relevant to Health Maintenance Insurance [facility] Care Teams Record Press Supervisor Relationship Specialty [place] [address] [place] [address] PCP - General Family Practice 09/07/16
--- OUTSIDE RECORDS SUMMARY | 2025-01-01 21:32 | XMS_ITS | Encounter Summary ---
Author Organization [facility] Address [address] [place] [address] Care Team Providers Care Real Estate Broker Name Role Phone Candice Ayala MD Primary Care Provider [phone] Reason for Visit * Reason Comments Medication Request 90 day supply reques t: ARIPiprazole (ABILIFY) 2 MG tablet Encounter Details Date Type Department Care Team (Late st Contact Info) Description 12/29/2024 Telephone [facility] 38[address] Psychiatry [address] [facility] [place] [address] Amy Levy APRN, PANTRY CHEF [address] [place] [address] Medication Request (90 day supply request: ARIPiprazole (ABILIFY) 2 MG tablet) Social History Tobacco Use Types Packs/Day Years [...] Nursing Notes * Everett Rivas RN - 12/29/2024 2:19 PM CDT Noted. Closing encounter. * Amy Levy APRN, CNP - 12/29/2024 2:16 PM CDT Thank you for the message. I signed and sent the prescription. Thank you. * Everett Rivas RN - 12/29/2024 1:31 PM CDT Routing to Rickie Levy APRN, CNP - If okay, pended Abilify 2 mg for 90 day. Pharmacy is requesting 90 day supply. Last appt 11/05/24. Appt due this month. * Joelle Wyatt - 12/29/2024 8:43 AM CDT 90 day supply requested ARIPiprazole (ABILIFY) 2 MG tablet #180 [facility]/pharmacy #[id number] - [place], [place] - [address] [facility] [phone] documented in this encounter Plan of Treatment Upcoming Encounters Date Type Department Care Team (Late st Contact Info) Description 01/05/2025 9:00 AM CDT [facility] [address] [place] [address] [place] [address] Yany Faye MD [address] [facility] [address] [place] [phone] 01/05/2025 10:00 AM CDT Appointment [facility] [place] [address] [address] [address] [place] [phone] Yany Faye MD [address] [facility] [address] [place] [phone] 01/05/2025 11:00 AM CDT Appointment [facility] [place] [address] [address] [place] [address] [place] [phone] Yany Faye MD [address] [facility] [address] [place] [phone] 03/03/2025 8:00 AM WORK OVER RIG OPERATOR Appointment [facility] [address] [place] [address] 03/05/2025 11:20 AM WORK OVER RIG OPERATOR [facility] 39[address] Neurology [address] [place] [address] Lexy Park MD [id number] [place] [address] documented as of this encounter Visit Diagnoses Not on filedocumented in this encounter Care Teams Real Estate Broker Relationship Specialty [place] [address] [place] [address] PCP - General Family Practice 09/07/16 documented as of this encounter
[2025-01-01 21:39] VITALS: BP 114/78; PULSE 75; RESP 18; TEMP 36.7; O2SAT 95; BMI 25.8
--- NOTE | 2025-01-01 21:56 | CRLHL7_ITS ---
For Patients: As a result of the Century Cures Act, medical imaging exams and procedure reports are released immediately into your electronic medical record. You may view this report before your referring provider. If you have questions, please contact your health care provider. Indication: Right-sided abdominal pain, diarrhea Technique: CT through the abdomen and pelvis following 79 mL Isovue 370 IV contrast Comparison: None Findings: Lower chest: No acute abnormality appreciated. Hepatobiliary: No significant parenchymal abnormality is appreciated. Spleen: Unremarkable. Pancreas: No acute abnormality appreciated. Adrenal glands: No acute abnormality appreciated. Kidneys: Contrast excretion in the bilateral collecting systems excludes reliable assessment for nonobstructing calculi. No hydronephrosis or acute parenchymal abnormality appreciated. Bowel: No obstruction. No focal perienteric or pericolonic stranding is appreciated. The appendix is visualized and appears unremarkable. Vascular: No acute abnormality appreciated. Lymph nodes: No gross lymphadenopathy. Peritoneum: No free air. No free fluid. : No acute abnormality appreciated. Soft tissues: No acute abnormality appreciated. Bones: Suspect L5-S1 disc extrusion with impingement of the descending left S1 nerve root. Impression: 1. No acute abnormality appreciated to account for patient`s reported symptoms. 2. Incidentally noted is a suspected left central disc extrusion at L5-S1 with probable impingement of the descending left S1 nerve root. This can be correlated on a nonemergent basis for radiculopathic symptoms. Please note that all CT scans at this facility use dose modulation, iterative reconstruction, and/or weight-based dosing when appropriate to reduce radiation dose to as low as reasonably achievable. Dictated by Joe Echevarria MD @ 01/01/2025 11:31:04 PM (Electronically Signed)
--- NOTE | 2025-01-01 21:57 | ED_ITS ---
HPI - General Adult General Date Seen: 01/01/25 Chief complaint: Diarrhea Stated complaint: virus Time Seen by Provider: 01/01/25 21:48 Source: patient Mode of arrival: ambulatory Limitations: no limitations History of Present Illness HPI narrative: Patient is a 39-year-old female history of POTS, mast cell deregulations syndrome presenting to the emergency department for diarrhea, abdominal pain, and nausea. She states for the past week she has been having multiple episodes of diarrhea. Has not had any formed stool in that time frame. States it was initially orange in color now is yellow. No recent changes to her medications. The symptoms 1st started she was having a fever but has had no further fever. Also states the symptoms 1st started she vomited multiple times was not had any vomiting in the past few days. She does feel causing nauseated and has not been able to eat or drink anything. Has been doing fluids transfusions through her port so she does not feel dehydrated. States she has been unable to urinate. Denies any chest pain, shortness of breath, headache, vision changes, weakness, numbness. States she was having Related Data Home Medications ?Medication ?Instructions ?Recorded ?Confirmed alprazolam 0.5 mg tablet 0.5 mg PO QPM PRN 01/01/25 0 01/01/25 aripiprazole 2 mg tablet 4 mg PO DAILY 01/01/2501/01 dicyclomine 20 mg tablet 20 mg PO QID PRN dysuria 03/1701/01/25 epinephrine 0.3 mg/0.3 mL 0.3 ml IM 01/01/25 injection, auto-injector estradiol 0.05 mg/24 hr weekly 1 patch transdermal 03/17 transdermal patch estradiol 0.1 mg/24 hr weekly 1 patch topical 01/01/25 transdermal patch estradiol 1 mg tablet mg PO 01/01/25 estradiol 2 mg tablet mg PO 01/01/25 midodrine 10 mg tablet 10 mg PO BID 01/01/25 Allergies Allergy/AdvReac Type Severity Reaction Status Date / Time No Known Drug Allergies Allergy Verified 01/01/25 22:25 [facility] Social History service: No Exam Const: Vital Signs, click to edit/add: Vital Signs - 24 hr 01/01/25 21:39 Temperature 98.1 F Pulse Rate [Pulse Oximeter] 75 Respiratory Rate 18 Blood Pressure [Ri ght Upper Arm] 114/78 Pulse Oximetry 95 Oxygen Delivery Me thod Room Air Course Vital Signs Vital signs: Initial Vital Signs Temperature 98.1 F 01/01/25 21:39 Temperature Source Temporal Artery Scan 01/01/25 21:39 Pulse Rate 75 01/01/25 21:39 Respiratory Rate 18 01/01/25 21:39 Blood Pressure 114/78 01/01/25 21:39 Blood Pressure Mean 90 01/01/25 21:39 Blood Pressure Position Sitting 01/01/25 21:39 Pulse Oximetry 95 01/01/25 21:39 Oxygen Delivery Method Room Air 01/01/25 21:39 Vital Signs Temperature 98.1 F 01/01/25 21:39 Pulse Rate 75 01/01/25 21:39 Respiratory Rate 18 01/01/25 21:39 Blood Pressure 114/78 01/01/25 21:39 Pulse Oximetry 95 01/01/25 21:39 Oxygen Delivery Method Room Air 01/01/25 21:39 Temperature 98.1 F 01/01/25 21:39 Pulse Rate 75 01/01/25 21:39 Respiratory Rate 18 01/01/25 21:39 Blood Pressure 114/78 01/01/25 21:39 Pulse Oximetry 95 01/01/25 21:39 Oxygen Delivery Method Room Air 01/01/25 21:39 Medications Administered Medications: Discontinued Medications Generic Name Dose Route Start Last Admin Trade Name Freq PRN Reason Stop Dose Admin Ondansetron HCl 4 mg 01/01/25 21:56 01/01/25 22:29 Ondansetron 2 Mg/Ml Inj IVP 01/01/25 21:57 4 mg ONCE ONE Administration Medical Decision Making [facility] Narrative Medical decision making narrative: Patient is a 39-year-old female presenting to emergency department for diarrhea, nausea, abdominal pain. Pains on the right side of her abdomen it could be from gallbladder or liver disease, appendicitis. Will also check for pancreatitis. Less likely to be diverticulitis due to location of pain. Will do CT scan for better evaluation. She did bring a stool sample with so I will do a C diff and ova and parasite test. Also order CBC, CMP, magnesium, urinalysis. Zofran given for her nausea. Patient is feeling better after the Zofran. Her lab work returned showing no acute concerning abnormalities. C diff is negative. Ova and parasites are pending. This is a send out lab will take a few days to come back. CT scan of her abdomen pelvis showed no acute intra-abdominal abnormalities. There is incidental left central disc extrusion of L5-S1 with possible impingement of the left descending S1 nerve root. She is not having any back symptoms at this time. At this time I do believe she is safe for discharge she is agreeable to this plan Lab Data Labs: Lab Results 01/01/25 01/01/25 01/01/25 Range/Units 22:02 22:35 23:23 WBC 4.37 L (4.50-11.00) K/uL RBC 3.85 L (4.00-5.20) m/uL Hgb 11.9 L (12.0-16.0) gm/dL Hct 35.5 (33.0-51.0) % MCV 92 (80-100) fL MCH 31 (26-34) pg MCHC 34 (32-36) gm/dL RDW Coeff of [place] 12.0 (11.5-15.5) % Plt Count 143 (140-440) K/uL Neut % (Auto) 49.1 (42.0-72.0) % Lymph % (Auto) 35.5 (20-44) % [place] % (Auto) 10.1 (0.0-11.0) % Eos % (Auto) 4.6 (0.0-7.0) % Baso % (Auto) 0.2 (0.0-3.0) % Neut # (Auto) 2.10 (1.7-7.0) K/uL Lymph # (Auto) 1.60 (0.90-2.90) K/uL [place] # (Auto) 0.40 (0.00-0.90) K/UL Eos # (Auto) 0.20 (0.00-0.50) K/uL Baso # (Auto) 0.00 (0.00-0.30) K/uL Abs Immat Gran (auto) 0.00 (0.00-0.30) K/uL Imm/Tot Granulo (auto) 0.5 % Sodium 138 (135-149) mmol/L Potassium 4.1 (3.6-5.1) mmol/L Chloride 103 (96-114) mmol/L Carbon Dioxide 25 (20-32) mmol/L Anion Gap 10 (7-15) mEq/L BUN 9 (5-24) mg/dL Creatinine 0.7 (0.5-1.5) mg/dL Estimated Creat Clear 100.01 Estimated GFR 112 ml/min Glucose 95 (60-115) mg/dL Calcium 9.1 (8.4-10.6) mg/dL Magnesium 1.9 (1.5-2.6) mg/dL Total Bilirubin 0.4 (0.1-1.5) mg/dL AST 41 H (12-35) U/L ALT 20 (4-35) U/L Alkaline Phosphatase 47 (40-150) U/L Total Protein 6.9 (6.0-8.3) g/dL Albumin 4.2 (3.3-5.0) g/dL Lipase 111 (23-300) U/L Urine Color Yellow (Yellow) Urine Appearance Clear (Clear) Urine pH 5.5 (5.0-8.5) Ur Specific [place] >= 1.030 (1.000-1.030) Urine Protein Trace A (Negative) Urine Glucose (UA) Negative (Negative) Urine Ketones Negative (Negative) Urine Blood Negative (Negative) Urine Nitrite Negative (Negative) Urine Bilirubin Negative (Negative) Urine Urobilinogen 1.0 (0.2-1.0) Ur Leukocyte Esterase Negative (Negative) Urine RBC 0-2 (0-2) Urine WBC 0-2 (0-5) Ur Squamous Epith Cells Few (None-Few) Urine Bacteria Moderate A (None) Urine Mucus Many A (None) Stl C. diff Tox B Gene Negative (Negative) Stl C. diff [id number] PRESUMPTIVE NEGATIVE (Negative) Lab Acknowledgement Test Added Imaging Data CT scan abdomen and pelvis: Attestation: I have reviewed the pertinent imaging results. Radiologist's impression: 1. No acute abnormality appreciated to account for patient`s reported symptoms. 2. Incidentally noted is a suspected left central disc extrusion at L5-S1 with probable impingement of the descending left S1 nerve root. This can be correlated on a nonemergent basis for radiculopathic symptoms. Please note that all CT scans at this facility use dose modulation, iterative reconstruction, and/or weight-based dosing when appropriate to reduce radiation dose to as low as reasonably achievable. Dictated by Joe Echevarria MD @ 01/01/2025 11:31:04 PM Discharge Plan Discharge Clinical Impression: Diarrhea Qualifiers: Diarrhea type: unspecified type Qualified Code(s): R19.7 - Diarrhea, unspecified Patient Disposition: Home, Self-Care Condition: Stable Instructions: Acute Diarrhea (ED) Additional Instructions: I recommend following up with the primary care provider symptoms persist. This is likely a viral cause it should resolve on its own. The culture of your stool should return in a few days and will let you know if there are any abnormalities. Of note there is also a small disc herniation if you L5-S1 region of your back. If you are having any back pain recommend following up with your primary care provider for this Prescriptions: No Action estradiol 0.05 mg/24 hr patch weekly 1 patch transdermal alprazolam 0.5 mg tablet 0.5 mg PO QPM PRN estradiol 1 mg tablet PO dicyclomine 20 mg tablet 20 mg PO QID PRN (Reason: dysuria) estradiol 2 mg tablet PO epinephrine 0.3 mg/0.3 mL auto-injector 0.3 ml IM estradiol 0.1 mg/24 hr patch weekly 1 patch topical midodrine 10 mg tablet 10 mg PO BID aripiprazole 2 mg tablet 4 mg PO DAILY Follow Up/Referrals: Provider,Not a Local [Primary Care Provider, Family Practice] Stand Alone Forms: MyHealth Info Instructions
[2025-01-01 22:14] LABS: Appearance Urine Clear (Clear)
[2025-01-01] MEDS: ONDANSETRON 2 MG/ML inj 4 MG IVP (22:29)
--- NOTE | 2025-01-01 22:35 | PC.NURSE ---
ok to use patient's own port access as she requests per Dr Patel
[2025-01-01 22:43] LABS: Hematocrit* 35.5 % (33.0-51.0); Hemoglobin* 11.9 gm/dL (12.0-16.0); Immature Granulocytes Pct Auto 0.5 %; Mean Corpuscular HGB Conc 34 gm/dL (32-36); Mean Corpuscular Hemoglobin 31 pg (26-34); Mean Corpuscular Volume 92 fL (80-100); RDW Coefficient of Variation % 12.0 % (11.5-15.5); Red Blood Count* 3.85 m/uL (4.00-5.20); White Blood Count* 4.37 K/uL (4.50-11.00)
[2025-01-01 22:55] LABS: Immature Granulocytes Abs Auto 0.00 K/uL (0.00-0.30); Lymphocytes Absolute Auto 1.60 K/uL (0.90-2.90); Slide Review Reflex No
[2025-01-01 23:09] LABS: C.Difficile Negative (Negative); CDIFFEPI 027 PRESUMPTIVE NEGATIVE (Negative)
[2025-01-01 23:36] LABS: Albumin* 4.2 g/dL (3.3-5.0); Chloride* 103 mmol/L (96-114); Potassium* 4.1 mmol/L (3.6-5.1); Sodium* 138 mmol/L (135-149)
[2025-01-01 23:39] LABS: Alanine Aminotransferase* 20 U/L (4-35); Alkaline Phosphatase* 47 U/L (40-150); Anion Gap 10 mEq/L (7-15); Aspartate Amino Transferase* 41 U/L (12-35); Bilirubin Total* 0.4 mg/dL (0.1-1.5); Blood Urea Nitrogen* 9 mg/dL (5-24); Calcium* 9.1 mg/dL (8.4-10.6); Carbon Dioxide* 25 mmol/L (20-32); Creatinine* 0.7 mg/dL (0.5-1.5); Est. Creatinine Clearance* 100.01; Estimated Glomerular Filt Rate 112 ml/min; Glucose* 95 mg/dL (60-115); Total Protein* 6.9 g/dL (6.0-8.3)
[2025-01-07 15:24] LABS: Ova and Parasite, Fecal Negative (Negative)
== END 2025-01-02 00:15 | disposition home or self-care (01) ==
PROVIDERS: Emergency Provider Student in an Organized Health Care Education/Training Program
DX: R19.7 Diarrhea, unspecified (principal); R10.9 Unspecified abdominal pain; R11.0 Nausea
CPT/HCPCS: 36415; 74177; 80053; 81001; 83690; 83735; 85025; 87086; 87177; 87209; 87493; 99284; 99285; J2405; Q9967